=== PATIENT | female | born 1965 | race Caucasian/White ===

== ENCOUNTER 2017-04-29 20:40 | Inpatient (IN) | payer MEDICARE, OTHER ==
[~2017-04-29] VITALS: Ht 160 cm; Wt 117.4 kg
[~2017-04-29 20:40] MED LIST: DIPH50 PO; GLUCTAB PO; LURA120T PO; METF500 PO; MVI PO; NEOS15T TOPICAL; PALI234P IM; PARO20 PO; PARO20TA PO; PERI8.6T PO; PRAV40 PO; QUET200 PO; TAB-TAB PO; TOPA100T8 PO; TOPI100 PO; TUMS PO; [UNRECOGNIZED DRUG - CODE] PO
[2017-04-29 20:51] VITALS: BP 124/83; PULSE 78; RESP 14; TEMP 98.5; O2SAT 98
[2017-04-29 22:13] LABS: AUTOMATED NEUTROPHIL # 5.8 TH/MM3 (1.8-7.7); BASOPHIL # 0.1 TH/MM3 (0-0.2); BASOPHIL % 0.9 % (0.0-2.0); EOSINOPHIL # 0.2 TH/MM3 (0-0.4); EOSINOPHIL % 2.1 % (0.0-4.0); HEMATOCRIT 37.7 % (35.0-46.0); HEMOGLOBIN 12.8 GM/DL (11.6-15.3); LYMPH % 24.5 % (9.0-44.0); LYMPHOCYTE # 2.1 TH/MM3 (1.0-4.8); MEAN CORPUSCULAR HEMOGLOBIN 30.3 PG (27.0-34.0); MEAN CORPUSCULAR HGB CONC 34.1 % (32.0-36.0); MEAN PLATELET VOLUME 7.3 FL (7.0-11.0); MONO % 5.9 % (0.0-8.0); MONOCYTE # 0.5 TH/MM3 (0-0.9); NEUT % 66.6 % (16.0-70.0); PLATELET COUNT 247 TH/MM3 (150-450); RED BLOOD COUNT 4.23 MIL/MM3 (4.00-5.30); RED CELL DISTRIBUTION WIDTH 14.4 % (11.6-17.2); WHITE BLOOD COUNT 8.7 TH/MM3 (4.0-11.0)
[2017-04-29 22:33] LABS: ALBUMIN 3.5 GM/DL (3.4-5.0); ALT (GPT) 47 U/L (10-53); AST (GOT) 31 U/L (15-37); BICARBONATE 29.9 MEQ/L (21.0-32.0); BLOOD UREA NITROGEN 10 MG/DL (7-18); CALCIUM 9.4 MG/DL (8.5-10.1); CHLORIDE 101 MEQ/L (98-107); GLOMERULAR FILTRATION RATE 67 ML/MIN (>89); GLUCOSE,RANDOM 96 MG/DL (74-106); SODIUM (NA) 138 MEQ/L (136-145)
[2017-04-29 22:36] LABS: ALKALINE PHOSPHATASE 82 U/L (45-117); TOTAL BILIRUBIN ADULT 0.4 MG/DL (0.2-1.0); TOTAL PROTEIN 7.7 GM/DL (6.4-8.2)
[2017-04-29 22:44] LABS: ACETAMINOPHEN LESS THAN 2.0 MCG/ML (10.0-30.0)
--- NOTE | 2017-04-30 01:37 | PD ---
HPI Chief Complaint: Psychiatric Symptoms Time Seen by Provider: 01:34 Travel History International Travel<30 days: No Contact w/Intl Traveler<30days: No Traveled to known affect area: No History of Present Illness HPI 51-year-old white female presents to emergency department under Serrano act by the doctor at her facility. Patient lives in a [facility]. She has a history of schizoaffective disorder, hypercholesterolemia, obesity, sleep apnea and diabetes. She has been noncompliant with her medications. She has become increasingly agitated. She is locking herself in her room. There is concern for her well-being. She is brought here under Serrano act. The patient here denies any suicidal or homicidal ideation. She states that she does not think she needs her medications. Denies tobacco, alcohol or drugs. PFSH Past Medical History Narrative Medical Sleep apnea, obesity, hypercholesterolemia, schizoaffective disorder, diabetes Arthritis: No Asthma: No Blood Disorders: No Bipolar Disorder: Yes Anxiety: Yes Depression: Yes Heart Rhythm Problems: No Cancer: No Cardiovascular Problems: Yes High Cholesterol: Yes Chest Pain: No Congestive Heart Failure: No COPD: No Cerebrovascular Accident: No Diabetes: Yes Patient Takes Glucophage: Yes Diminished Hearing: No Endocrine: No Gastrointestinal Disorders: No Genitourinary: No Headaches: No Hepatitis: No Hiatal Hernia: No Hypertension: No Immune Disorder: No Implanted Vascular Access Dvce: No Musculoskeletal: No Neurologic: No Psychiatric: Yes Reproductive: No Respiratory: No Immunizations Current: Yes Migraines: No Myocardial Infarction: No Renal Failure: No Schizophrenia: Yes (SCHIZOAFFECTIVE) Seizures: No Sleep Apnea: No Thyroid Disease: No Triglycerides - High: Yes Tetanus Vaccination: < 5 Years Influenza Vaccination: No ?: Not Menopausal: No : 6 Para: 6 Miscarriage: 0 : 0 Past Surgical History Appendectomy: No Cardiac Surgery: No Cholecystectomy: No Ear Surgery: No Endocrine Surgery: No Eye Surgery: No Genitourinary Surgery: No Gynecologic Surgery: No Neurologic Surgery: No Oral Surgery: No Thoracic Surgery: No Other Surgery: No Social History Alcohol Use: No Tobacco Use: No Substance Use: No Allergies-Medications (Allergen,Severity, Reaction): Coded Allergies: lamotrigine (Unverified Allergy, Mild, Rash, 04/29/17) Reported Meds & Prescriptions Reported Meds & Active Scripts Active Active Prescriptions or Reported Medications Unobtainable Review of Systems Except as stated in HPI: all other systems reviewed are Neg General / Constitutional: No: Fever Eyes: No: Visual changes HENT: No: Headaches Cardiovascular: No: Chest Pain or Discomfort Respiratory: No: Shortness of Breath Gastrointestinal: No: Abdominal Pain Genitourinary: No: Dysuria Musculoskeletal: No: Pain Skin: No Rash Neurologic: No: Weakness Psychiatric: No: Anxiety, Depression, Suicidal Ideations, Disorder of Thought, Mood Disorder, Substance Abuse, Homicidal Ideation Endocrine: No: Polydipsia Hematologic/Lymphatic: No: Easy Bruising Physical Exam Narrative GENERAL: Well-nourished, well-developed patient. SKIN: Warm and dry. HEAD: Normocephalic and atraumatic. EYES: No scleral icterus. No injection or drainage. ENT: No nasal drainage noted. Mucous membranes pink. Airway patent. NECK: Supple, trachea midline. Moves head freely without obvious discomfort. CARDIOVASCULAR: Regular rate and rhythm without murmurs, gallops, or rubs. RESPIRATORY: Breath sounds equal bilaterally. No accessory muscle use. GASTROINTESTINAL: Abdomen soft, non-tender, nondistended. EXTREMITIES: No cyanosis or edema. BACK: Nontender without obvious deformity. No CVA tenderness. NEURO: Patient is alert and oriented. no sensorimotor deficits. Nonfocal. Normal speech. PSYCH: No delusions. No auditory or visual hallucinations. Data Data Last Documented VS Vital Signs Date Time Temp Pulse Resp B/P (MAP) Pulse Ox O2 Delivery O2 Flow Rate FiO2 04/29/17 20:51 98.5 78 14 124/83 (97) 98 Orders Orders Complete Blood Count With Diff (04/29/17 21:59) Comprehensive Metabolic Panel (04/29/17 21:59) Psych Screen (04/29/17 21:59) Drug Screen, Random Urine (04/29/17 21:59) Alcohol (Ethanol) (04/29/17 21:59) Salicylates (Aspirin) (04/29/17 21:59) Tylenol (Acetaminophen) (04/29/17 21:59) Labs Laboratory Tests Test 04/29/17 22:02 White Blood Count 8.7 TH/MM3 Red Blood Count 4.23 MIL/MM3 Hemoglobin 12.8 GM/DL Hematocrit 37.7 % Mean Corpuscular Volume 89.0 FL Mean Corpuscular Hemoglobin 30.3 PG Mean Corpuscular Hemoglobin Concent 34.1 % Red Cell Distribution Width 14.4 % Platelet Count 247 TH/MM3 Mean Platelet Volume 7.3 FL Neutrophils (%) (Auto) 66.6 % Lymphocytes (%) (Auto) 24.5 % Monocytes (%) (Auto) 5.9 % Eosinophils (%) (Auto) 2.1 % Basophils (%) (Auto) 0.9 % Neutrophils # (Auto) 5.8 TH/MM3 Lymphocytes # (Auto) 2.1 TH/MM3 Monocytes # (Auto) 0.5 TH/MM3 Eosinophils # (Auto) 0.2 TH/MM3 Basophils # (Auto) 0.1 TH/MM3 CBC Comment DIFF FINAL Differential Comment Blood Urea Nitrogen 10 MG/DL Creatinine 0.90 MG/DL Random Glucose 96 MG/DL Total Protein 7.7 GM/DL Albumin 3.5 GM/DL Calcium Level 9.4 MG/DL Alkaline Phosphatase 82 U/L Aspartate Amino Transf (AST/SGOT) 31 U/L Alanine Aminotransferase (ALT/SGPT) 47 U/L Total Bilirubin 0.4 MG/DL Sodium Level 138 MEQ/L Potassium Level 3.6 MEQ/L Chloride Level 101 MEQ/L Carbon Dioxide Level 29.9 MEQ/L Anion Gap 7 MEQ/L Estimat Glomerular Filtration Rate 67 ML/MIN Salicylates Level LESS THAN 1.7 MG/DL Acetaminophen Level LESS THAN 2.0 MCG/ML Ethyl Alcohol Level LESS THAN 3 MG/DL MDM Medical Decision Making Medical Screen Exam Complete: Yes Emergency Medical Condition: Yes Medical Record Reviewed: Yes Interpretation(s) Laboratory Tests Test 04/29/17 22:02 White Blood Count 8.7 TH/MM3 Red Blood Count 4.23 MIL/MM3 Hemoglobin 12.8 GM/DL Hematocrit 37.7 % Mean Corpuscular Volume 89.0 FL Mean Corpuscular Hemoglobin 30.3 PG Mean Corpuscular Hemoglobin Concent 34.1 % Red Cell Distribution Width 14.4 % Platelet Count 247 TH/MM3 Mean Platelet Volume 7.3 FL Neutrophils (%) (Auto) 66.6 % Lymphocytes (%) (Auto) 24.5 % Monocytes (%) (Auto) 5.9 % Eosinophils (%) (Auto) 2.1 % Basophils (%) (Auto) 0.9 % Neutrophils # (Auto) 5.8 TH/MM3 Lymphocytes # (Auto) 2.1 TH/MM3 Monocytes # (Auto) 0.5 TH/MM3 Eosinophils # (Auto) 0.2 TH/MM3 Basophils # (Auto) 0.1 TH/MM3 CBC Comment DIFF FINAL Differential Comment Blood Urea Nitrogen 10 MG/DL Creatinine 0.90 MG/DL Random Glucose 96 MG/DL Total Protein 7.7 GM/DL Albumin 3.5 GM/DL Calcium Level 9.4 MG/DL Alkaline Phosphatase 82 U/L Aspartate Amino Transf (AST/SGOT) 31 U/L Alanine Aminotransferase (ALT/SGPT) 47 U/L Total Bilirubin 0.4 MG/DL Sodium Level 138 MEQ/L Potassium Level 3.6 MEQ/L Chloride Level 101 MEQ/L Carbon Dioxide Level 29.9 MEQ/L Anion Gap 7 MEQ/L Estimat Glomerular Filtration Rate 67 ML/MIN Salicylates Level LESS THAN 1.7 MG/DL Acetaminophen Level LESS THAN 2.0 MCG/ML Ethyl Alcohol Level LESS THAN 3 MG/DL Differential Diagnosis MDM: High Differential diagnoses: Schizophrenia, schizoaffective disorder, bipolar, anxiety, depression, adjustment reaction, mood disorder NOS, ODD, depressive disorder NOS, dementia, dementia with agitation, psychosis NOS, substance induced mood disorder, DMDD, Asperger syndrome, infection,electrolyte abnormality, malingering. Narrative Course Mental health screening discussed with the patient. Psychiatric screen ordered. The patient been medically clear. This is medical clearance for psychiatric admission Diagnosis Primary Impression: Medical clearance for psychiatric admission Scripts Unable to Obtain Active Prescriptions or Reported Meds Condition: Harmeet Haji Apr 30, 2017 01:36
[2017-04-30] MEDS ORDERED: LISI30TA4 PO (02:38)
[2017-04-30] MEDS ORDERED: BREX1TAB5 PO (02:38)
[2017-04-30] MEDS ORDERED: PRAV20TA2 PO (02:38)
[2017-04-30] MEDS ORDERED: PARO30TA2 PO (02:38)
[2017-04-30] MEDS ORDERED: SENN8.6T36 PO (02:38)
[2017-04-30] MEDS ORDERED: NAPR-855 PO (02:38)
[2017-04-30] MEDS ORDERED: DIPH25TA2 PO (02:38)
[2017-04-30] MEDS ORDERED: METF500T PO (02:38)
[2017-04-30] MEDS ORDERED: PALI234P IM (02:38)
[2017-04-30] MEDS ORDERED: OS-CTAB PO (02:38)
[2017-04-30] MEDS ORDERED: MULTTAB67 PO (02:38)
[2017-04-30 05:20] VITALS: BP 102/66; PULSE 65; RESP 16; TEMP 98.1; O2SAT 94
[2017-04-30] MEDS ORDERED: LORazepam 1 MG TAB PO PRN (06:00)
[2017-04-30] MEDS ORDERED: PILL SPLITTER OTHER PRN ×2 (06:00→16:00)
[2017-04-30] MEDS ORDERED: MAGNESIUM HYDROXIDE SUSP 30 ML CUP PO PRN (06:00)
[2017-04-30] MEDS ORDERED: LORazepam 2 MG/ML VIAL IM PRN (06:00)
[2017-04-30] MEDS ORDERED: ALUMINUM/MAGNESIUM/SIMETH 30 ML CUP PO PRN (06:00)
[2017-04-30] MEDS ORDERED: ACETAMINOPHEN 325 MG TAB PO PRN (06:00)
[2017-04-30] MEDS ORDERED: diphenhydrAMINE HCL 25 MG CAP PO PRN (06:15)
[2017-04-30] MEDS ORDERED: NAPROXEN 375 MG TAB PO PRN (06:15)
[2017-04-30] MEDS ORDERED: PARoxetine HCL 20 MG TAB PO SCH ×2 (09:00→16:00)
[2017-04-30 09:20] VITALS: BP 131/65
[2017-04-30] MEDS: PRAVASTATIN SOD 20 MG TAB PO SCH (09:29)
[2017-04-30] MEDS: CALCIUM/VITAMIN D 250 MG/125 U TAB PO SCH (09:31)
[2017-04-30] MEDS: SENNOSIDES 8.6 MG TAB PO SCH ×2 (09:31→20:45)
[2017-04-30] MEDS: metFORMIN HCL 500 MG TAB PO SCH (09:31)
[2017-04-30] MEDS: MULTIVITAMIN TAB PO SCH (09:31)
[2017-04-30] MEDS: LISINOPRIL 10 MG TAB PO SCH (09:33)
--- NOTE | 2017-04-30 13:29 | PD.CONS ---
HPI Service [facility] Consult Requested By Reason for Consult Medical management Primary Care Physician Unknown Diagnoses: History of Present Illness Ms. Zavala is a 51-year-old female who was brought to the emergency department under a Serrano act by the physician who cares for her the [facility] where she lives at. Apparently patient was becoming increasingly agitated and locking herself in her room. Patient has a past medical history which is significant for schizoaffective disorder, hypertension, hypercholesterolemia, obesity, and sleep apnea with CPAP use at bedtime. She denies any shortness of breath, cough, fevers, chills, nausea, vomiting, diarrhea, headaches, lightheadedness or chest pains. Denies any dysuria, hematuria, or frequency, stools are normal. She denies any black or bloody stools. She reports that she takes medication for her diabetes but is unsure of the name of the medication, denies use of insulin. She voices no acute concerns at the current moment. Review of Systems Except as stated in HPI: all other systems reviewed are Neg Past Family Social History Allergies: Coded Allergies: lamotrigine (Unverified Allergy, Mild, Rash, 04/29/17) Past Medical History Hypertension Diabetes Hypercholesterolemia Sleep apnea Obesity Past Surgical History Denies any past surgeries. Reported Medications Reported Meds & Active Scripts Active Reported Naproxen 375 Mg Tab 375 Mg PO BID PRN Diphenhydramine (Diphenhydramine HCl) 25 Mg Tab 50 Mg PO HS PRN Invega Sustenna Inj (Paliperidone Palmitate) 234 Mg/1.5 Ml Inj 234 Mg IM Q28D Senna-Tabs (Sennosides) 8.6 Mg Tab 8.6 Mg PO BID Paroxetine (Paroxetine HCl) 30 Mg Tab 30 Mg PO DAILY Multiple Vitamin 1 Tab 1 Tab PO DAILY Rexulti (Brexpiprazole) 3 Mg Tab 3 Mg PO DAILY Lisinopril 30 Mg Tab 30 Mg PO DAILY Pravastatin 20 Mg Tab 20 Mg PO DAILY Os-Moise Extra D3 (Calcium Carbonate-Cholecalciferol) 500-600 Mg-Unit Tab 1 Tab PO DAILY Metformin (Metformin HCl) 500 Mg Tab 500 Mg PO DAILY With a meal Active Ordered Medications Current Medications Medications (Trade) Dose Ordered Sig/Benjie Route Start Time Stop Time Status Last Admin (Ativan) 1 mg Q6H PRN PO 04/30/17 06:00 (Ativan Inj) 1 mg Q6H PRN IM 04/30/17 06:00 (Tylenol) 650 mg Q4H PRN PO 04/30/17 06:00 (Milk Of Magnesia Liq) 30 ml DAILY PRN PO 04/30/17 06:00 (Mag-Al Plus Susp Liq) 30 ml Q6H PRN PO 04/30/17 06:00 (Glucophage) 500 mg DAILY PO 04/30/17 09:00 04/30/17 09:31 (Oscal-D 250-125) 500 mg DAILY PO 04/30/17 09:00 04/30/17 09:31 (Pravachol) 20 mg DAILY PO 04/30/17 09:00 04/30/17 09:29 (Prinivil) 30 mg DAILY PO 04/30/17 09:00 04/30/17 09:33 (Theragran) 1 tab DAILY PO 04/30/17 09:00 04/30/17 09:31 (Paxil) 30 mg DAILY PO 04/30/17 09:00 (Pill Splitter) 1 ea UNSCH PRN OTHER 04/30/17 06:00 (Senokot) 8.6 mg BID PO 04/30/17 09:00 04/30/17 09:31 (Benadryl) 25 mg HS PRN PO 04/30/17 06:15 (Naprosyn) 375 mg BID PRN PO 04/30/17 06:15 (Flu (Quadrivalent) Vaccine Inj) 0.5 ml ONCE ONCE IM 05/01/17 10:00 05/01/17 10:01 (SEROquel) 50 mg BID PO 04/30/17 21:00 (Pill Splitter) 1 ea UNSCH PRN OTHER 04/30/17 16:00 Family History Father: Leukemia Social History Lives at [facility] Reports that she has 6 children Physical Exam Vital Signs Vital Signs Date Time Temp Pulse Resp B/P (MAP) Pulse Ox O2 Delivery O2 Flow Rate FiO2 04/30/17 09:20 131/65 (87) 04/30/17 05:20 98.1 65 16 102/66 (78) 94 04/29/17 20:51 98.5 78 14 124/83 (97) 98 Physical Exam GENERAL: This is a well-nourished, obese female resting in bed comfortably. SKIN: No rashes. Cool and dry. HEAD: Atraumatic. Normocephalic. EYES: Pupils equal round and reactive. No scleral icterus. No injection or drainage. ENT: Nose without bleeding, purulent drainage. Throat without erythema. Uvula midline. Airway patent. NECK: Trachea midline. No JVD CARDIOVASCULAR: Regular rate and rhythm without murmurs, gallops, or rubs. RESPIRATORY: Clear to auscultation. Breath sounds equal bilaterally. No wheezes , rales, or rhonchi. GASTROINTESTINAL: Abdomen soft, obese, non-tender. No guarding. MUSCULOSKELETAL: Extremities without clubbing, cyanosis, or edema. No joint tenderness, effusion, or edema noted. NEUROLOGICAL: Awake and alert. Cranial nerves II through XII intact. Motor and sensory grossly within normal limits. Five out of 5 muscle strength in all muscle groups. Normal speech. Laboratory Laboratory Tests Test 04/29/17 22:02 White Blood Count 8.7 Red Blood Count 4.23 Hemoglobin 12.8 Hematocrit 37.7 Mean Corpuscular Volume 89.0 Mean Corpuscular Hemoglobin 30.3 Mean Corpuscular Hemoglobin Concent 34.1 Red Cell Distribution Width 14.4 Platelet Count 247 Mean Platelet Volume 7.3 Neutrophils (%) (Auto) 66.6 Lymphocytes (%) (Auto) 24.5 Monocytes (%) (Auto) 5.9 Eosinophils (%) (Auto) 2.1 Basophils (%) (Auto) 0.9 Neutrophils # (Auto) 5.8 Lymphocytes # (Auto) 2.1 Monocytes # (Auto) 0.5 Eosinophils # (Auto) 0.2 Basophils # (Auto) 0.1 CBC Comment DIFF FINAL Differential Comment Blood Urea Nitrogen 10 Creatinine 0.90 Random Glucose 96 Total Protein 7.7 Albumin 3.5 Calcium Level 9.4 Alkaline Phosphatase 82 Aspartate Amino Transf (AST/SGOT) 31 Alanine Aminotransferase (ALT/SGPT) 47 Total Bilirubin 0.4 Sodium Level 138 Potassium Level 3.6 Chloride Level 101 Carbon Dioxide Level 29.9 Anion Gap 7 Estimat Glomerular Filtration Rate 67 Salicylates Level LESS THAN 1.7 Acetaminophen Level LESS THAN 2.0 Ethyl Alcohol Level LESS THAN 3 Result Diagram: 04/29/17220104/29/172201 Assessment and Plan Assessment and Plan 11-year-old female with past medical history significant for HTN, diabetes, hypercholesterolemia, sleep apnea, schizoaffective disorder, and obesity who presents to the emergency department under Serrano act after patient was having increasing episodes of agitation at [facility]. [facility] consulted for medical management. Schizoaffective disorder -Management per psychiatry team Hypertension, controlled -Continue home dose lisinopril 30 mg daily. -BP stable, continue monitoring. Diabetes -Continue home dose metformin and 1800 ADA diet. -Blood sugar on BMP within normal range -Hemoglobin A1c ordered by primary team Hypercholesterolemia -Continue home dose pravastatin DVT prophylaxis-ambulating Thank you for this consultation will continue to follow along. Willian Lara Apr 30, 2017 13:29
[2017-04-30] MEDS ORDERED: NON-FORMULARY DRUG (Paroxetine 30 MG) PO SCH (16:00)
[2017-04-30] MEDS: PARoxetine HCL 20 MG TAB PO SCH (16:30)
--- NOTE | 2017-04-30 16:52 | HHI.HP ---
Provisional Diagnosis Admission Date Apr 30, 2017 at 04:57 [place] I. Schizoaffective disorder Certification of Person's Competence To Provide Express and Informed Consent I have personally examined Sierra Zavala , a person being served at [facility] on, Apr 30, 2017 16:49. Express and informed consent means consent voluntarily given in writing, by a competent person, after sufficient explanation and disclosure of the subject matter involved to enable the person to make a knowing and willful decision without any element of force, fraud, deceit, duress, or other form of constraint or coercion. This person is 18 years of age or older, is not now known to be incompetent to consent to treatment with a guardian advocate, and does not have a health care surrogate or proxy currently making medical treatment decisions. I have found this person to be one of the following: [] Competent to provide express and informed consent, as defined above, for voluntary admission to this facility and is competent to provide express and informed consent for treatment. He/she has the consistent capacity to make well reasoned, willful, and knowing decisions concerning his or her medical or mental health treatment. The person fully and consistently understands the purpose of the admission for examination/placement and is fully capable of personally exercising all rights assured under [place]xxx] Incompetent to provide express and informed consent to voluntary admission , and this is incompetent to provide express and informed consent to treatment. The person must be transferred to involuntary status and a petition for a guardian advocate filed with the Circuit Court. [] Refusing to provide express and informed consent to voluntary admission but is competent to provide express and informed consent for treatment. The person must be discharged or transferred to involuntary status. Form shall be completed within 24 hours of a person's arrival at the receiving facility and filed in the clinical record of each person: 1. Admitted on a voluntary basis 2. Permitted to provide express and informed consent to his/her own treatment 3. Allowed to transfer from involuntary to voluntary status 4. Prior to permitting a person to consent to his or her own treatment after having been previously found incompetent to consent to treatment. History of Present Illness Capacity: Has Capacity (For medications only) HPI Patient is a 51-year-old woman single with 6 children domiciled alone in an assisted living facility, [facility], unemployed on SSI, with past psychiatric history of schizoaffective disorder multiple psychiatric admissions last time in November 2014 at [place], multiple suicide attempts and self- injurious behavior with past medical history significant for hypertension diabetes Little brought in the Serrano act by physician at her facility due to noncompliance with treatment, increasing agitation, and isolating self in room patient was admitted to the inpatient psychiatry for further evaluation and management. Patient was found lying in hospital bed, cooperative stating that she is in the hospital because she was not taking her medications for the past 7 days. Patient was noted to be poor historian S most answers to questions have been "I do not remember or I do not know". Patient states that she was brought in by her FACT team to 2 commendatory hallucinations for the past 3 days to hurt herself. Patient reports feeling a little depressed, endorsing some visual hallucinations but did not elaborate. Patient also denying suicidal or homicidal ideations or delusions at this time. Patient admitted to locked herself in her room for the past couple of days and not eating well but reports no difficulty with sleep, energy, concentration or appetite. Patient reports she is feeling "okay" denies any perceptual disturbances at time of interview. Collateral contact: Hat Band Attacher Rajni from [facility], FACT team -[phone]. Collateral information was obtained from clinical education assistant who reported the patient tried to admission stopped taking her medications as well as cheeking her medications. She also mentions that patient was thought probably diuretics, diet pills and laxatives that were hidden in her room as well as razors. Family psychiatric history: Patient reports an aunt with diagnosis of depression , no suicides in the family Past psychiatric history: previous psychiatric diagnoses of schizoaffective disorder, multiple previous psychiatric admissions, last time at [place] in November 2014, multiple previous suicide attempts last and being "years ago" via cutting and overdose, history of self and behavior via burning self with hot water last time being 2 years ago. Patient will be followed by the FACT team for the past 13 years who she has seen her visited once or twice a week. Substance use history: Denies Past medical history: Diabetes and hypertension Allergies NKDA Social history: Born in [place], has 7 siblings, single, has 6 children, domiciled in guarded manner [facility], education is high school. Patient denies any legal history, service, or access to firearms. Patient unemployed on SSI. Review of Systems Except as stated in HPI: all other systems reviewed are Neg Past Psych History Psychological trauma history Denies Violence risk - others (6 mos) Low Violence risk - self (6 mos) Elevated due to recent command auditory hallucinations to kill herself, history of suicide attempts. Substance Abuse History Drugs/Alcohol past 12 months Denies Past Family Social History Coded Allergies: lamotrigine (Unverified Allergy, Mild, Rash, 04/29/17) Reported Medications Naproxen (Naproxen) 375 Mg Tab, 375 MG PO BID Y for PAIN SCALE 1 TO 10, #60 TAB 0 Refills 04/30/17 Diphenhydramine (Diphenhydramine) 25 Mg Tab, 50 MG PO HS Y for SLEEP, TAB 0 Refills 04/30/17 Paliperidone Palmitate Inj (Invega Sustenna Inj) 234 Mg/1.5 Ml Inj, 234 MG IM Q28D for Schizophrenia, #1 VIAL 0 Refills 04/30/17 Sennosides (Senna-Tabs) 8.6 Mg Tab, 8.6 MG PO BID for Constipation, #30 TAB 0 Refills 04/30/17 Paroxetine (Paroxetine) 30 Mg Tab, 30 MG PO DAILY, #30 TAB 0 Refills 04/30/17 Multiple Vitamin (Multiple Vitamin) 1 Tab, 1 TAB PO DAILY for Nutritional Supplement, TAB 0 Refills 04/30/17 Brexpiprazole (Rexulti) 3 Mg Tab, 3 MG PO DAILY, TAB 04/30/17 Lisinopril (Lisinopril) 30 Mg Tab, 30 MG PO DAILY for Blood Pressure Management , #30 TAB 0 Refills 04/30/17 Pravastatin (Pravastatin) 20 Mg Tab, 20 MG PO DAILY for Cholesterol Management, #30 TAB 0 Refills 04/30/17 Calcium Carbonate-Cholecalciferol (Os-Moise Extra D3) 500-600 Mg-Unit Tab, 1 TAB PO DAILY for Calcium Supplement, TAB 0 Refills 04/30/17 Metformin (Metformin) 500 Mg Tab, 500 MG PO DAILY for Blood Sugar Management, # 30 TAB 0 Refills With a meal 04/30/17 Current Medications Medications (Trade) Dose Ordered Sig/Benjie Route Start Time Stop Time Status Last Admin (Ativan) 1 mg Q6H PRN PO 2/21/18 06:00 (Ativan Inj) 1 mg Q6H PRN IM 04/30/17 06:00 (Tylenol) 650 mg Q4H PRN PO 04/30/17 06:00 (Milk Of Magnesia Liq) 30 ml DAILY PRN PO 04/30/17 06:00 (Mag-Al Plus Susp Liq) 30 ml Q6H PRN PO 04/30/17 06:00 (Glucophage) 500 mg DAILY PO 04/30/17 09:00 04/30/17 09:31 (Oscal-D 250-125) 500 mg DAILY PO 04/30/17 09:00 04/30/17 09:31 (Pravachol) 20 mg DAILY PO 04/30/17 09:00 04/30/17 09:29 (Prinivil) 30 mg DAILY PO 04/30/17 09:00 04/30/17 09:33 (Theragran) 1 tab DAILY PO 04/30/17 09:00 04/30/17 09:31 (Senokot) 8.6 mg BID PO 04/30/17 09:00 04/30/17 09:31 (Benadryl) 25 mg HS PRN PO 04/30/17 06:15 (Naprosyn) 375 mg BID PRN PO 04/30/17 06:15 (Flu (Quadrivalent) Vaccine Inj) 0.5 ml ONCE ONCE IM 05/01/17 10:00 05/01/17 10:01 (SEROquel) 50 mg BID PO 04/30/17 21:00 (Pill Splitter) 1 ea UNSCH PRN OTHER 04/30/17 16:00 (Paxil) 30 mg DAILY PO 04/30/17 16:30 Family Psych History Aunt with depression, no suicide in the family Social History Born in [place], has 7 siblings, single, has 6 children, domiciled in guarded manner [facility], education is high school. Patient denies any legal history , service, or access to firearms. Patient unemployed on SSI. Patient's Strengths (min. 2) Verbal and communicative Physical Exam Vital Signs Vital Signs Date Time Temp Pulse Resp B/P (MAP) Pulse Ox O2 Delivery O2 Flow Rate FiO2 04/30/17 09:20 131/65 (87) 04/30/17 05:20 98.1 65 16 94 Lab Results Test 04/29/17 22:02 White Blood Count 8.7 TH/MM3 Red Blood Count 4.23 MIL/MM3 Hemoglobin 12.8 GM/DL Hematocrit 37.7 % Mean Corpuscular Volume 89.0 FL Mean Corpuscular Hemoglobin 30.3 PG Mean Corpuscular Hemoglobin Concent 34.1 % Red Cell Distribution Width 14.4 % Platelet Count 247 TH/MM3 Mean Platelet Volume 7.3 FL Neutrophils (%) (Auto) 66.6 % Lymphocytes (%) (Auto) 24.5 % Monocytes (%) (Auto) 5.9 % Eosinophils (%) (Auto) 2.1 % Basophils (%) (Auto) 0.9 % Neutrophils # (Auto) 5.8 TH/MM3 Lymphocytes # (Auto) 2.1 TH/MM3 Monocytes # (Auto) 0.5 TH/MM3 Eosinophils # (Auto) 0.2 TH/MM3 Basophils # (Auto) 0.1 TH/MM3 CBC Comment DIFF FINAL Differential Comment Blood Urea Nitrogen 10 MG/DL Creatinine 0.90 MG/DL Random Glucose 96 MG/DL Total Protein 7.7 GM/DL Albumin 3.5 GM/DL Calcium Level 9.4 MG/DL Alkaline Phosphatase 82 U/L Aspartate Amino Transf (AST/SGOT) 31 U/L Alanine Aminotransferase (ALT/SGPT) 47 U/L Total Bilirubin 0.4 MG/DL Sodium Level 138 MEQ/L Potassium Level 3.6 MEQ/L Chloride Level 101 MEQ/L Carbon Dioxide Level 29.9 MEQ/L Anion Gap 7 MEQ/L Estimat Glomerular Filtration Rate 67 ML/MIN Salicylates Level LESS THAN 1.7 MG/DL Acetaminophen Level LESS THAN 2.0 MCG/ML Ethyl Alcohol Level LESS THAN 3 MG/DL Mental Status Examination Appearance: Appropriate Consciousness: Alert Orientation: Person, Place, Date/Time Speech: Unremarkable Language: Adequate Fund of Knowledge: Inadequate Attention and Concentration: Adequate Memory: Unremarkable Mood: Sad Affect: Blunt Thought Process & Associations: Linear, Other ([place]) Thought Content: Appropriate, Other (Noted to be somewhat internally preoccupied) Hallucination Type: Auditory (Command type telling her to kill herself), Visual Delusion Type: Paranoid Suicidal Ideation: No Suicidal Plan: No Suicidal Intention: No Homicidal Ideation: No Homicidal Plan: No Homicidal Intention: No Insight: Poor Judgment: Poor Assessment & Plan Problem List: (1) Schizoaffective disorder ICD Codes: F25.9 - Schizoaffective disorder Status: Acute Assessment & Plan Patient is a 51-year-old woman who carries a diagnosis of schizoaffective disorder with multiple psychiatric admissions, multiple suicide attempts and history of self-injurious behavior was put under Serrano act recently after patient was found isolating herself, not taking care of self, found with diuretics and laxatives and diet pills hidden in her room as well as stockpile of razors in the context of noncompliance of medications. Patient this time has active psychotic symptoms and requires inpatient psychiatric stabilization. We will restart patient on paroxetine 30 mg p.o. daily, start quetiapine 50 mg p.o. twice daily was upper titration as needed. Patient to receive Invega Sustenna 234 mg IM 1 today and do every 28 days. Continue to monitor with behavior. Hospitalist consult for management of chronic medical issues pending. Petition for involuntary hospitalization started. Second opinion requested. Discharge planning in progress Discharge Planning Back to her [facility] when psychiatrically stable Jose Billingsley MD Apr 30, 2017 16:52
[2017-04-30] MEDS ORDERED: PALIPERIDONE PALMITATE 234 MG/1.5 ML SYRINGE IM SCH (17:00)
[2017-04-30 18:00] VITALS: BP 136/57; PULSE 69; RESP 16; TEMP 98; O2SAT 95
[2017-04-30] MEDS: QUEtiapine FUMARATE 100 MG TAB PO SCH (20:45)
[2017-05-01 06:05] VITALS: BP 98/58; PULSE 69; RESP 19; TEMP 97.2; O2SAT 96
[2017-05-01 08:24] LABS: BICARBONATE 30.7 MEQ/L (21.0-32.0); BLOOD UREA NITROGEN 16 MG/DL (7-18); CALCIUM 9.3 MG/DL (8.5-10.1); CHLORIDE 100 MEQ/L (98-107); CHOLESTEROL 186 MG/DL (120-200); CREATININE 1.35 MG/DL (0.50-1.00); GLOMERULAR FILTRATION RATE 42 ML/MIN (>89); GLUCOSE,RANDOM 96 MG/DL (74-106); SODIUM (NA) 139 MEQ/L (136-145); TRIGLYCERIDES 175 MG/DL (42-150)
[2017-05-01] MEDS: metFORMIN HCL 500 MG TAB PO SCH (08:26)
[2017-05-01] MEDS: SENNOSIDES 8.6 MG TAB PO SCH ×2 (08:26→20:52)
[2017-05-01] MEDS: LISINOPRIL 10 MG TAB PO SCH (08:26)
[2017-05-01] MEDS: PARoxetine HCL 20 MG TAB PO SCH (08:26)
[2017-05-01] MEDS: MULTIVITAMIN TAB PO SCH (08:26)
[2017-05-01] MEDS: PRAVASTATIN SOD 20 MG TAB PO SCH (08:26)
[2017-05-01 08:27] LABS: CHOLESTEROL/ HDL RATIO 4.81 RATIO; HDL CHOLESTEROL 38.6 MG/DL (40.0-60.0); LDL CHOLESTEROL 112 MG/DL (0-99)
[2017-05-01] MEDS: QUEtiapine FUMARATE 100 MG TAB PO SCH ×2 (08:27→20:52)
[2017-05-01] MEDS: CALCIUM/VITAMIN D 250 MG/125 U TAB PO SCH (08:27)
[2017-05-01] MEDS ORDERED: INFLUENZA VIRUS VACCINE (QUADRIVALENT) 0.5 ML SYR IM ONE (10:00)
--- NOTE | 2017-05-01 11:41 | PD.PSY.CON ---
Provisional Diagnosis Admission Date Apr 30, 2017 at 04:57 [place] I. Schizoaffective disorder History of Present Illness Service Psychiatry Consult Requested By Dr. Billingsley Reason for Consult Second opinion Primary Care Physician Unknown HPI Patient is a 51-year-old woman single with 6 children domiciled alone in an assisted living facility, [facility], unemployed on [facility], with past psychiatric history of schizoaffective disorder multiple psychiatric admissions last time in November 2014 at [place], multiple suicide attempts and self- injurious behavior with past medical history significant for hypertension diabetes Little brought in the Serrano act by physician at her facility due to noncompliance with treatment, increasing agitation, and isolating self in room patient was admitted to the inpatient psychiatry for further evaluation and management. Patient was found lying in hospital bed, cooperative stating that she is in the hospital because she was not taking her medications for the past 7 days. Patient was noted to be poor historian S most answers to questions have been "I do not remember or I do not know". Patient states that she was brought in by her FACT team to 2 commendatory hallucinations for the past 3 days to hurt herself. Patient reports feeling a little depressed, endorsing some visual hallucinations but did not elaborate. Patient also denying suicidal or homicidal ideations or delusions at this time. Patient admitted to locked herself in her room for the past couple of days and not eating well but reports no difficulty with sleep, energy, concentration or appetite. Patient reports she is feeling "okay" denies any perceptual disturbances at time of interview. Collateral contact: Service Team Leader Rajni from [facility], FACT team -[phone]. Collateral information was obtained from corporate quality engineer who reported the patient tried to admission stopped taking her medications as well as cheeking her medications. She also mentions that patient was thought probably diuretics, diet pills and laxatives that were hidden in her room as well as razors. Family psychiatric history: Patient reports an aunt with diagnosis of depression , no suicides in the family The patient is a 51-year-old woman, domiciled in a residential facility, [facility], single, mother of 6 kids, unemployed, supported by [facility] , with psychiatric history of schizoaffective disorder, multiple psychiatric hospitalizations, previous suicidal attempts, establish outpatient care with fact team, medical history of diabetes, obesity and hypertension, brought under serrano act by physician at her facility due to noncompliance with treatment, increasing agitation, and isolating self in room patient was admitted to the inpatient psychiatry for further evaluation and management. Consulted to live for second opinion. On psychiatric evaluation the patient is found in bed, she is awake, calm, cooperative, pleasant, she reports that he doesn't really know the reason she was hospitalized. She has been taking her medications, she does not remember the name of the medication that she is taking, she reports good mood, denies depression, denies anxiety, is logical, coherent, but has a prominent concrete thought process, denies suicidal and homicidal ideation, denies visual hallucinations, but reports commanding-type auditory hallucinations of voices telling her to currently to kill herself. Past Family Social History Coded Allergies: lamotrigine (Unverified Allergy, Mild, Rash, 04/29/17) Reported Medications Naproxen (Naproxen) 375 Mg Tab, 375 MG PO BID Y for PAIN SCALE 1 TO 10, #60 TAB 0 Refills 04/30/17 Diphenhydramine (Diphenhydramine) 25 Mg Tab, 50 MG PO HS Y for SLEEP, TAB 0 Refills 04/30/17 Paliperidone Palmitate Inj (Invega Sustenna Inj) 234 Mg/1.5 Ml Inj, 234 MG IM Q28D for Schizophrenia, #1 VIAL 0 Refills 04/30/17 Sennosides (Senna-Tabs) 8.6 Mg Tab, 8.6 MG PO BID for Constipation, #30 TAB 0 Refills 04/30/17 Paroxetine (Paroxetine) 30 Mg Tab, 30 MG PO DAILY, #30 TAB 0 Refills 04/30/17 Multiple Vitamin (Multiple Vitamin) 1 Tab, 1 TAB PO DAILY for Nutritional Supplement, TAB 0 Refills 04/30/17 Brexpiprazole (Rexulti) 3 Mg Tab, 3 MG PO DAILY, TAB 04/30/17 Lisinopril (Lisinopril) 30 Mg Tab, 30 MG PO DAILY for Blood Pressure Management , #30 TAB 0 Refills 04/30/17 Pravastatin (Pravastatin) 20 Mg Tab, 20 MG PO DAILY for Cholesterol Management, #30 TAB 0 Refills 04/30/17 Calcium Carbonate-Cholecalciferol (Os-Moise Extra D3) 500-600 Mg-Unit Tab, 1 TAB PO DAILY for Calcium Supplement, TAB 0 Refills 04/30/17 Metformin (Metformin) 500 Mg Tab, 500 MG PO DAILY for Blood Sugar Management, # 30 TAB 0 Refills With a meal 04/30/17 Current Medications Medications (Trade) Dose Ordered Sig/Benjie Route Start Time Stop Time Status Last Admin (Ativan) 1 mg Q6H PRN PO 04/30/17 06:00 (Ativan Inj) 1 mg Q6H PRN IM 04/30/17 06:00 (Tylenol) 650 mg Q4H PRN PO 04/30/17 06:00 (Milk Of Magnesia Liq) 30 ml DAILY PRN PO 04/30/17 06:00 (Mag-Al Plus Susp Liq) 30 ml Q6H PRN PO 04/30/17 06:00 (Glucophage) 500 mg DAILY PO 04/30/17 09:00 Future Hold 05/01/17 08:26 (Oscal-D 250-125) 500 mg DAILY PO 04/30/17 09:00 05/01/17 08:27 (Pravachol) 20 mg DAILY PO 04/30/17 09:00 05/01/17 08:26 (Prinivil) 30 mg DAILY PO 04/30/17 09:00 Future Hold 05/01/17 08:26 (Theragran) 1 tab DAILY PO 04/30/17 09:00 05/01/17 08:26 (Senokot) 8.6 mg BID PO 04/30/17 09:00 05/01/17 08:26 (Benadryl) 25 mg HS PRN PO 04/30/17 06:15 (Naprosyn) 375 mg BID PRN PO 04/30/17 06:15 (SEROquel) 50 mg BID PO 04/30/17 21:00 05/01/17 08:27 (Pill Splitter) 1 ea UNSCH PRN OTHER 04/30/17 16:00 (Paxil) 30 mg DAILY PO 04/30/17 16:30 05/01/17 08:26 (Invega Sustenna Inj) 234 mg Q28D IM 04/30/17 17:00 04/30/17 17:28 Social History Born in [place], has 7 siblings, single, has 6 children, domiciled in guarded manner [facility], education is high school. Patient denies any legal history , service, or access to firearms. Patient unemployed on SSI. Patient's Strengths (min. 2) Verbal and communicative Physical Exam Vital Signs Vital Signs Date Time Temp Pulse Resp B/P (MAP) Pulse Ox O2 Delivery O2 Flow Rate FiO2 05/01/17 06:05 97.2 69 19 98/58 (71) 96 Lab Results Test 05/01/17 07:32 Blood Urea Nitrogen 16 MG/DL Creatinine 1.35 MG/DL Random Glucose 96 MG/DL Calcium Level 9.3 MG/DL Sodium Level 139 MEQ/L Potassium Level 4.0 MEQ/L Chloride Level 100 MEQ/L Carbon Dioxide Level 30.7 MEQ/L Anion Gap 8 MEQ/L Estimat Glomerular Filtration Rate 42 ML/MIN Triglycerides Level 175 MG/DL Cholesterol Level 186 MG/DL LDL Cholesterol 112 MG/DL HDL Cholesterol 38.6 MG/DL Cholesterol/HDL Ratio 4.81 RATIO Mental Status Examination Appearance: Appropriate Consciousness: Alert Orientation: Person, Place, Date/Time Speech: Unremarkable Language: Adequate Fund of Knowledge: Inadequate Attention and Concentration: Adequate Memory: Unremarkable Mood: Sad Affect: Blunt Thought Process & Associations: Linear, Other ([place]) Thought Content: Appropriate, Other (Noted to be somewhat internally preoccupied) Hallucination Type: Auditory (Command type telling her to kill herself), Visual Delusion Type: Paranoid Suicidal Ideation: No Suicidal Plan: No Suicidal Intention: No Homicidal Ideation: No Homicidal Plan: No Homicidal Intention: No Insight: Poor Judgment: Poor Assessment & Plan Problem List: (1) Schizoaffective disorder ICD Codes: F25.9 - Schizoaffective disorder Status: Acute Assessment & Plan: I have seen and examined this patient for second opinion, reviewed the documentation, discussed this case personally with Dr. Billingsley, I agree and concur with his assessment and plan. Consult appreciated. Assessment & Plan Estimated LOS: Raúl Banks MD May 01, 2017 11:41
--- NOTE | 2017-05-01 12:04 | HHI.PR ---
Subjective Remarks Follow-up HTN and DM. Patient seen and examined resting comfortably in bed. She denies any fevers, chills, nausea, vomiting, diarrhea, headache, SOB or cough. Appears more sleepy today and nurse repots that patient was not interested in breakfast or dinner last night. She did shower, but has been seclusive in her room, nursing also noted she was slapping her face last night. Discussed with patient that sometimes CPAP is not uses with LUZ it can cause sleepiness during the day. Offered CPAP, but she declined. Discussed renal function with her and the importance of hydration and holding Metformin and Lisinopril. Repots that she was not taking any of her medications for one week before coming here. She has no acute concerns today. Objective Vitals Vital Signs Date Time Temp Pulse Resp B/P (MAP) Pulse Ox O2 Delivery O2 Flow Rate FiO2 05/01/17 06:05 97.2 69 19 98/58 (71) 96 04/30/17 18:00 98.0 69 16 136/57 (83) 95 Result Diagram: 04/29/17 2202 05/01/17 0732 Objective Remarks GENERAL: This is a well-nourished, obese female resting in bed comfortably, appears sleepy. SKIN: No rashes. Cool and dry. HEAD: Atraumatic. Normocephalic. EYES: Pupils equal round and reactive. No scleral icterus. No injection or drainage. ENT: Airway patent. NECK: Trachea midline. CARDIOVASCULAR: Regular rate and rhythm without murmurs, gallops, or rubs. RESPIRATORY: Clear to auscultation. Breath sounds equal bilaterally. No wheezes , rales, or rhonchi. GASTROINTESTINAL: Abdomen soft, obese, non-tender. No guarding. MUSCULOSKELETAL: Extremities without clubbing, cyanosis, or edema. NEUROLOGICAL: Awake and alert. Motor and sensory grossly within normal limits. Moves all extremities. Normal speech. A/P Assessment and Plan 51-year-old female with past medical history significant for HTN, diabetes, hypercholesterolemia, sleep apnea, schizoaffective disorder, and obesity who presents to the emergency department under Serrano act after patient was having increasing episodes of agitation at [facility]. [facility] consulted for medical management. Schizoaffective disorder -Management per psychiatry team Hypertension, controlled - Lisinopril now on hold due to [place] - Will monitor BP and if needed can start Amlodipine Diabetes -Continue 1800 ADA diet, will hold metformin due to [place] -Blood sugar on BMP within normal range -Hemoglobin A1c pending Hypercholesterolemia -Continue home dose pravastatin [place]ANK[place]N - Increase in Creatinine from 0.9-->1.35, GRF 67-->42 - Will hold Metformin and Lisinopril - Encourage oral hydration - Recheck BMP on 05/03 DVT prophylaxis-ambulating Discussed with nurse and Willian Nina May 01, 2017 12:04
--- NOTE | 2017-05-01 14:14 | HHI.PYPN ---
Subjective Remarks Patient seen for follow, chart reviewed. Discussion with staff reported the patient had not been having adequate nutritional intake but did shower had been consistent with use of CPAP as patient diagnosed with sleep apnea. Patient noted to be internally preoccupied as well as patient having had episode where she was hitting herself in the face. Patient was found lying hospital bed, cooperative. Patient states that she had not eaten at all today psychosis although realizes she is diabetic. Patient also admitted to hitting himself in the face stated that he was trying to help herself Seese from the auditory hallucinations she was experiencing. She states the last time she experienced was less evening denies any perceptual disturbances at time of interview. Patient continues to have depressed mood along with intermittent suicide ideations. Patient also attempted to bargain stating that she drank water she can skip eating was encouraged that she required both. Review of Systems Except as stated in HPI: all other systems reviewed are Neg Mental Status Examination Appearance: Appropriate Consciousness: Alert Orientation: Person, Place, Date/Time Speech: Unremarkable Language: Adequate Fund of Knowledge: Inadequate Attention and Concentration: Adequate Memory: Unremarkable Mood: Sad Affect: Blunt Thought Process & Associations: Linear, Other ([place]) Thought Content: Appropriate, Other (Noted to be somewhat internally preoccupied) Hallucination Type: Auditory (Command type telling her to kill herself), Visual (Denies today) Delusion Type: Paranoid Suicidal Ideation: No Suicidal Plan: No Suicidal Intention: No Homicidal Ideation: No Homicidal Plan: No Homicidal Intention: No Insight: Poor Judgment: Poor Results Labs labs reviewed Test 05/01/17 07:32 Blood Urea Nitrogen 16 MG/DL Creatinine 1.35 MG/DL Random Glucose 96 MG/DL Calcium Level 9.3 MG/DL Sodium Level 139 MEQ/L Potassium Level 4.0 MEQ/L Chloride Level 100 MEQ/L Carbon Dioxide Level 30.7 MEQ/L Anion Gap 8 MEQ/L Estimat Glomerular Filtration Rate 42 ML/MIN Triglycerides Level 175 MG/DL Cholesterol Level 186 MG/DL LDL Cholesterol 112 MG/DL HDL Cholesterol 38.6 MG/DL Cholesterol/HDL Ratio 4.81 RATIO Vitals/IOs Vital Signs Date Time Temp Pulse Resp B/P (MAP) Pulse Ox O2 Delivery O2 Flow Rate FiO2 05/01/17 06:05 97.2 69 19 98/58 (71) 96 Assessment & Plan Problem List: (1) Schizoaffective disorder ICD Codes: F25.9 - Schizoaffective disorder Status: Acute Assessment & Plan Patient at this time continues to be internally preoccupied experience he perceptional services along with having self-injurious behavior, consistently adherent to treatment. We will increase quetiapine to 100 mg p.o. twice daily for psychosis, continue rest of medications. Continue to encourage patient to participate in adequate nutritional intake as well as maintenance of personal hygiene groups and activities on the unit. Continue to monitor motor behavior. Discharge planning in progress. Justification for Cont. Inpt. At risk of further decompensation at lower level of care Discharge Planning Return back to [facility] when psychiatrically stable. Jose Billingsley MD May 01, 2017 14:14
[2017-05-01 16:38] LABS: HEMOGLOBIN A1C 6.3 % (4.3-6.0)
[2017-05-01 18:28] VITALS: BP 108/65; PULSE 68; RESP 16; TEMP 98; O2SAT 97
[2017-05-02 06:03] VITALS: BP 119/57; PULSE 67; RESP 17; TEMP 98.1; O2SAT 96
[2017-05-02] MEDS: PARoxetine HCL 20 MG TAB PO SCH (09:00)
[2017-05-02] MEDS: QUEtiapine FUMARATE 100 MG TAB PO SCH ×2 (09:22→20:57)
[2017-05-02] MEDS: SENNOSIDES 8.6 MG TAB PO SCH ×2 (09:22→20:58)
[2017-05-02] MEDS: CALCIUM/VITAMIN D 250 MG/125 U TAB PO SCH (09:22)
[2017-05-02] MEDS: MULTIVITAMIN TAB PO SCH (09:23)
[2017-05-02] MEDS: PRAVASTATIN SOD 20 MG TAB PO SCH (09:23)
--- NOTE | 2017-05-02 13:57 | HHI.PR ---
Subjective Remarks Follow-up HTN and DM. Patient seen and examined resting comfortably in bed, in no acute distress. She is awake and alert much more than yesterday. She repots sleeping well, denies any fever, chills, nausea, vomiting, or diarrhea. She does repots a headache today which is similar to headaches she has had in the past, no visual changes, dizziness, or nausea. Spoke with nurse who does not voice acute concerns. Objective Vitals Vital Signs Date Time Temp Pulse Resp B/P (MAP) Pulse Ox O2 Delivery O2 Flow Rate FiO2 05/02/17 06:03 98.1 67 17 119/57 (77) 96 05/01/17 18:28 98.0 68 16 108/65 (79) 97 Result Diagram: 04/29/17 2202 05/01/17 0732 Objective Remarks GENERAL: This is a well-nourished, obese female resting in bed comfortably. SKIN: No rashes. Cool and dry. HEAD: Atraumatic. Normocephalic. EYES: Pupils equal round and reactive. No scleral icterus. No injection or drainage. ENT: Airway patent. NECK: Trachea midline. CARDIOVASCULAR: Regular rate and rhythm without murmurs, gallops, or rubs. RESPIRATORY: Clear to auscultation. Breath sounds equal bilaterally. No wheezes , rales, or rhonchi. GASTROINTESTINAL: Abdomen soft, obese, non-tender. No guarding. MUSCULOSKELETAL: Extremities without clubbing, cyanosis, or edema. NEUROLOGICAL: Awake and alert. Motor and sensory grossly within normal limits. Moves all extremities. Normal speech. A/P Assessment and Plan 51-year-old female with past medical history significant for HTN, diabetes, hypercholesterolemia, sleep apnea, schizoaffective disorder, and obesity who presents to the emergency department under Serrano act after patient was having increasing episodes of agitation at [facility] consulted for medical management. Schizoaffective disorder -Management per psychiatry team Hypertension, controlled - Lisinopril now on hold due to FRANKLYN - BP has been stable so far. Diabetes -Continue 1800 ADA diet, will hold metformin due to FRANKLYN -Blood sugar on BMP within normal range -Hemoglobin A1c 6.3-->pre-DM Hypercholesterolemia -Continue home dose pravastatin FRANKLYN - Increase in Creatinine from 0.9-->1.35, GRF 67-->42 - Will hold Metformin and Lisinopril - Encourage oral hydration - Recheck BMP on 05/03 Headache - Tylenol as needed DVT prophylaxis-ambulating Discussed with nurse. Willian Lara May 02, 2017 13:57
--- NOTE | 2017-05-02 19:00 | HHI.PYPN ---
Subjective Remarks Patient is seen for follow-up, chart reviewed. Discussion nursing staff reported the patient did eat breakfast this morning, denies any perceptual disturbances, showered and slept well last evening. Patient was found participating in the activity noted to be calm and cooperative. Patient states that she is eating better, slept well last night, reports not having any auditory hallucinations, last time being yesterday. Patient reports tolerating medications well, she also reports maintaining hygiene by showering today. Patient denies any suicidal ideations last time being last night, reports feeling depressed but less so today. She also admitted to having had razors in her room which she had planned to cut she has stockpiled and was taking well. Discussion about the dangers of taking these [id number] medications along with having access to razors will increase her risk of self-harm which she acknowledges. Review of Systems Except as stated in HPI: all other systems reviewed are Neg Mental Status Examination Appearance: Appropriate Consciousness: Alert Orientation: Person, Place, Date/Time Speech: Unremarkable Language: Adequate Fund of Knowledge: Inadequate Attention and Concentration: Adequate Memory: Unremarkable Mood: Sad Affect: Blunt Thought Process & Associations: Linear, Other ([place]) Thought Content: Appropriate, Other (Noted to be somewhat internally preoccupied) Hallucination Type: Auditory (Denies today), Visual (Denies today) Delusion Type: Paranoid Suicidal Ideation: Yes (Denies today) Suicidal Plan: No Suicidal Intention: No Homicidal Ideation: No Homicidal Plan: No Homicidal Intention: No Insight: Poor Judgment: Poor Results Vitals/IOs Vital Signs Date Time Temp Pulse Resp B/P (MAP) Pulse Ox O2 Delivery O2 Flow Rate FiO2 05/02/17 06:03 98.1 67 17 119/57 (77) 96 Assessment & Plan Problem List: (1) Schizoaffective disorder ICD Codes: F25.9 - Schizoaffective disorder Status: Acute Assessment & Plan Patient at this time continued with depressed mood but improving, continues with suicidal ideation but denied today along with no auditory hallucinations since this morning. Patient appear to be responding to current treatment regimen, we will continue current treatment. We will continue to monitor mood and behavior. Continue to encourage patient to maintain adequate p.o. intake, weakness of personal hygiene and participation in groups and activities. Continue recommendations as per primary medical team. Discharge planning in progress Justification for Cont. Inpt. At risk for further decompensation if at lower level of care. Discharge Planning Back to Jose Garcia MD May 02, 2017 19:00
[2017-05-03 05:30] VITALS: BP 125/68; PULSE 72; RESP 16; TEMP 97.8; O2SAT 93
[2017-05-03] MEDS: PRAVASTATIN SOD 20 MG TAB PO SCH (10:24)
[2017-05-03] MEDS: SENNOSIDES 8.6 MG TAB PO SCH ×2 (10:24→21:14)
[2017-05-03] MEDS: MULTIVITAMIN TAB PO SCH (10:24)
[2017-05-03] MEDS: QUEtiapine FUMARATE 100 MG TAB PO SCH ×2 (10:24→21:14)
[2017-05-03] MEDS: PARoxetine HCL 20 MG TAB PO SCH (10:25)
[2017-05-03] MEDS: CALCIUM/VITAMIN D 250 MG/125 U TAB PO SCH (10:26)
--- NOTE | 2017-05-03 12:10 | HHI.PYPN ---
Subjective Remarks Pt seen and discussed with staff. She reports that mood is better today. Little insight into actions at halfway (hiding sharps and medications) but has been cooperative with care. No SI/HI. She denies psychosis. Mental Status Examination Appearance: Appropriate Consciousness: Alert Orientation: Person, Place, Date/Time Speech: Unremarkable Language: Adequate Fund of Knowledge: Inadequate Attention and Concentration: Adequate Memory: Unremarkable Mood: Sad Affect: Blunt Thought Process & Associations: Linear, Other ([place]) Thought Content: Appropriate, Other (Noted to be somewhat internally preoccupied) Hallucination Type: Auditory (Denies today), Visual (Denies today) Delusion Type: Paranoid Suicidal Ideation: Yes (Denies today) Suicidal Plan: No Suicidal Intention: No Homicidal Ideation: No Homicidal Plan: No Homicidal Intention: No Insight: Poor Judgment: Poor Results Vitals/IOs Vital Signs Date Time Temp Pulse Resp B/P (MAP) Pulse Ox O2 Delivery O2 Flow Rate FiO2 05/03/17 05:30 97.8 72 16 125/68 (87) 93 Assessment & Plan Problem List: (1) Schizoaffective disorder ICD Codes: F25.9 - Schizoaffective disorder Status: Acute Assessment & Plan Pt improving. Continue current tx plan. Estimated LOS: days Justification for Cont. Inpt. risk of decompensation Eli Erazo MD May 03, 2017 12:10
[2017-05-03 12:50] LABS: CALCIUM 9.7 MG/DL (8.5-10.1); CREATININE 0.96 MG/DL (0.50-1.00)
--- NOTE | 2017-05-03 14:07 | HHI.PR ---
Subjective Remarks Follow-up visit for hypertension and diabetes. Patient seen and examined resting in bed comfortably in no acute distress. She denies any headache, dizziness, fevers, chills, vomiting, diarrhea, or abdominal pain. She does mention to me that earlier today she noticed some spotting which she believes was vaginal bleeding. Reports her last Pap smear was a year ago and was normal , due in June for Pap smear again. She has not had a period in over a year, no abdominal pain or discomfort, denies any other discharge. Objective Vitals Vital Signs Date Time Temp Pulse Resp B/P (MAP) Pulse Ox O2 Delivery O2 Flow Rate FiO2 05/03/17 05:30 97.8 72 16 125/68 (79) 93 Result Diagram: 04/29/17 2202 05/03/17 1130 Objective Remarks GENERAL: This is a well-nourished, obese female resting in bed comfortably. SKIN: No rashes. Cool and dry. HEAD: Atraumatic. Normocephalic. EYES: Pupils equal round and reactive. No scleral icterus. No injection or drainage. ENT: Airway patent. NECK: Trachea midline. CARDIOVASCULAR: Regular rate and rhythm without murmurs, gallops, or rubs. RESPIRATORY: Clear to auscultation. Breath sounds equal bilaterally. No wheezes , rales, or rhonchi. GASTROINTESTINAL: Abdomen soft, obese, non-tender. No guarding. MUSCULOSKELETAL: Extremities without clubbing, cyanosis, or edema. NEUROLOGICAL: Awake and alert. Motor and sensory grossly within normal limits. Moves all extremities. Normal speech. A/P Assessment and Plan 51-year-old female with past medical history significant for HTN, diabetes, hypercholesterolemia, sleep apnea, schizoaffective disorder, and obesity who presents to the emergency department under Serrano act after patient was having increasing episodes of agitation at [facility] consulted for medical management. Schizoaffective disorder -Management per psychiatry team Hypertension, controlled -Not on antihypertensive medications. -Can follow-up with PCP for ongoing monitoring of blood pressure. -At the current moment her blood pressure is well controlled without any medications. Diabetes -Continue 1800 ADA diet, resume metformin 500 mg daily. -Hemoglobin A1c 6.3-->pre-DM Hypercholesterolemia -Continue home dose pravastatin FRANKLYN - Increase in Creatinine from 0.9-->1.35, GRF 67-->42 -BMP from this morning reviewed, creatinine 0.96, GFR 62 -Metformin resumed ? Vaginal spotting -Advised patient to follow-up with her PCP/HEALTH COMMISSIONER to further discuss DVT prophylaxis-ambulating Discussed with nurse. [facility] will sign off, please reconsult if needed. Willian Lara May 03, 2017 14:07
[2017-05-03 18:15] VITALS: BP 130/60; PULSE 77; RESP 16; TEMP 97.9; O2SAT 92
[2017-05-04 05:27] VITALS: BP 142/69; PULSE 68; RESP 20; TEMP 97.6; O2SAT 94
[2017-05-04] MEDS: MULTIVITAMIN TAB PO SCH (09:28)
[2017-05-04] MEDS: PRAVASTATIN SOD 20 MG TAB PO SCH (09:29)
[2017-05-04] MEDS: CALCIUM/VITAMIN D 250 MG/125 U TAB PO SCH (09:29)
[2017-05-04] MEDS: PARoxetine HCL 20 MG TAB PO SCH (09:30)
[2017-05-04] MEDS: SENNOSIDES 8.6 MG TAB PO SCH ×2 (09:30→20:23)
[2017-05-04] MEDS: QUEtiapine FUMARATE 100 MG TAB PO SCH ×2 (09:30→20:23)
[2017-05-04] MEDS: metFORMIN HCL 500 MG TAB PO SCH (10:07)
--- NOTE | 2017-05-04 16:54 | HHI.PYPN ---
Subjective Remarks Pt seen and discussed with staff. She reports that she has not had AH today and has been in a better mood today. She has not attended groups but did spend time in the day room. She is compliant with medications. No outbursts or agitation. Mental Status Examination Appearance: Appropriate Consciousness: Alert Orientation: Person, Place, Date/Time Speech: Unremarkable Language: Adequate Fund of Knowledge: Inadequate Attention and Concentration: Adequate Memory: Unremarkable Mood: Sad Affect: Blunt Thought Process & Associations: Linear, Other ([place]) Thought Content: Appropriate, Other (Noted to be somewhat internally preoccupied) Hallucination Type: None Delusion Type: None Suicidal Ideation: No Suicidal Plan: No Suicidal Intention: No Homicidal Ideation: No Homicidal Plan: No Homicidal Intention: No Insight: Fair Judgment: Impulsive Results Vitals/IOs Vital Signs Date Time Temp Pulse Resp B/P (MAP) Pulse Ox O2 Delivery O2 Flow Rate FiO2 05/04/17 05:27 97.6 68 20 142/69 (93) 94 Assessment & Plan Problem List: (1) Schizoaffective disorder ICD Codes: F25.9 - Schizoaffective disorder Status: Acute Assessment & Plan Continue current tx plan. Estimated LOS: days Justification for Cont. Inpt. risk of decompensation Eli Erazo MD May 04, 2017 16:54
[2017-05-04 17:04] VITALS: BP 149/75; PULSE 72; RESP 18; TEMP 98.1; O2SAT 99
[2017-05-05 05:42] VITALS: BP 146/78; PULSE 75; RESP 20; TEMP 97.6
[2017-05-05] MEDS: QUEtiapine FUMARATE 100 MG TAB PO SCH (08:20)
[2017-05-05] MEDS: SENNOSIDES 8.6 MG TAB PO SCH (08:20)
[2017-05-05] MEDS: MULTIVITAMIN TAB PO SCH (08:20)
[2017-05-05] MEDS: CALCIUM/VITAMIN D 250 MG/125 U TAB PO SCH (08:20)
[2017-05-05] MEDS: metFORMIN HCL 500 MG TAB PO SCH (08:20)
[2017-05-05] MEDS: PRAVASTATIN SOD 20 MG TAB PO SCH (08:21)
[2017-05-05] MEDS: PARoxetine HCL 20 MG TAB PO SCH (08:21)
[2017-05-05] MEDS ORDERED: QUET1TAB8 PO (13:02)
[2017-05-05] MEDS ORDERED: SENN8.6T36 PO (13:02)
[2017-05-05] MEDS ORDERED: PRAV20TA2 PO (13:02)
[2017-05-05] MEDS ORDERED: MULTTAB67 PO (13:02)
[2017-05-05] MEDS ORDERED: PALI234P IM (13:02)
[2017-05-05] MEDS ORDERED: METF500T PO (13:02)
[2017-05-05] MEDS ORDERED: PARO30TA2 PO (13:02)
--- NOTE | 2017-05-05 13:05 | HHI.DS ---
Psychiatry Discharge Summary Inpatient Psychiatric care?: Yes Advance Directive: No Reason Not Provided: declined Mental Health AdvanceDirective: No Health Care Proxy: No Admission Admission Date Apr 30, 2017 at 04:57 Admission Diagnosis: (1) Schizoaffective disorder ICD Code: F25.9 - Schizoaffective disorder Brief History Patient is a 51-year-old woman single with 6 children domiciled alone in an assisted living facility, [facility], unemployed on [facility], with past psychiatric history of schizoaffective disorder multiple psychiatric admissions last time in November 2014 at [place], multiple suicide attempts and self- injurious behavior with past medical history significant for hypertension diabetes Little brought in the Serrano act by physician at her facility due to noncompliance with treatment, increasing agitation, and isolating self in room patient was admitted to the inpatient psychiatry for further evaluation and management. Patient was found lying in hospital bed, cooperative stating that she is in the hospital because she was not taking her medications for the past 7 days. Patient was noted to be poor historian S most answers to questions have been "I do not remember or I do not know". Patient states that she was brought in by her FACT team to 2 commendatory hallucinations for the past 3 days to hurt herself. Patient reports feeling a little depressed, endorsing some visual hallucinations but did not elaborate. Patient also denying suicidal or homicidal ideations or delusions at this time. Patient admitted to locked herself in her room for the past couple of days and not eating well but reports no difficulty with sleep, energy, concentration or appetite. Patient reports she is feeling "okay" denies any perceptual disturbances at time of interview. Collateral contact: Wastewater Technician Rajni from [facility], FACT team -[phone]. Collateral information was obtained from multi media specialist who reported the patient tried to admission stopped taking her medications as well as cheeking her medications. She also mentions that patient was thought probably diuretics, diet pills and laxatives that were hidden in her room as well as razors. Family psychiatric history: Patient reports an aunt with diagnosis of depression , no suicides in the family The patient is a 51-year-old woman, domiciled in a residential facility, [facility], single, mother of 6 kids, unemployed, supported by [facility] , with psychiatric history of schizoaffective disorder, multiple psychiatric hospitalizations, previous suicidal attempts, establish outpatient care with fact team, medical history of diabetes, obesity and hypertension, brought under serrano act by physician at her facility due to noncompliance with treatment, increasing agitation, and isolating self in room patient was admitted to the inpatient psychiatry for further evaluation and management. Consulted to live for second opinion. On psychiatric evaluation the patient is found in bed, she is awake, calm, cooperative, pleasant, she reports that he doesn't really know the reason she was hospitalized. She has been taking her medications, she does not remember the name of the medication that she is taking, she reports good mood, denies depression, denies anxiety, is logical, coherent, but has a prominent concrete thought process, denies suicidal and homicidal ideation, denies visual hallucinations, but reports commanding-type auditory hallucinations of voices telling her to currently to kill herself. Tobacco Use In Past 30 Days: No Tobacco Past 30 Days Alcohol Use: Never Hospital Course Patient is a 51-year-old woman single with 6 children domiciled alone in an assisted living facility, [facility], unemployed on [facility], with past psychiatric history of schizoaffective disorder multiple psychiatric admissions last time in November 2014 at [place], multiple suicide attempts and self- injurious behavior with past medical history significant for hypertension diabetes Little brought in the Serrano act by physician at her facility due to noncompliance with treatment, increasing agitation, and isolating self in room patient was admitted to the inpatient psychiatry for further evaluation and management. Due to active psychotic symptoms as well as paranoia and disorganization, quetiapine was started for psychosis as patient had responded previously to this agent as well as provided with Invega Sustenna 234mg IM on , continued on paroxetine 30mg PO daily. Patient was noted to be withdrawn , poor nutritional intake, and isolative initially but with continued treatment was noted to have progressive improvement of mood, cessation of auditory hallucinations, and compliant with treatment. Patient was cooperative with staff, had no behavioral dyscontrol, and participated in groups and activities. Upon discharge patient stated that she was feeling good, denied any psychotic symptoms, denied any SI, HI or delusions. Patient agreed to continue medication regimen and outpatient follow up for continuity of care. [facility] FACT team was notified of patients discharge back to her assisted living facility. I have counseled the patient regarding warning signs for need to return to the psychiatric emergency room as part of a general safety plan. Patient advised to call 911 or go nearest ED in case of emergency. Patient agrees with plan. Results Blood Pressure 146 / 78 Vital Signs Date Time Temp Pulse Resp B/P (MAP) Pulse Ox O2 Delivery O2 Flow Rate FiO2 05/05/17 05:42 97.6 75 20 146/78 (100) 05/04/17 17:04 99 Laboratory Tests Test 05/03/17 11:30 Anion Gap 4 MEQ/L (5-15) Estimat Glomerular Filtration Rate 62 ML/MIN (>89) Laboratory Results Test 05/01/17 07:32 Cholesterol Level 186 MG/DL (120-200) HDL Cholesterol 38.6 MG/DL (40.0-60.0) Hemoglobin A1c 6.3 % (4.3-6.0) LDL Cholesterol 112 MG/DL (0-99) Triglycerides Level 175 MG/DL (42-150) Summary of Procedures none Pending results at discharge: No Medications # of Antipsychotic meds at D/C: 1 Approp Antipsych med options 1 - Minimum of three failed multiple trials of monotherapy. 2 - Documented plan to taper to monotherapy due to previous use of multiple meds OR cross-taper in progress at D/C. 3 - Documentation of augmentation of Clozapine. 4 - Justification other than those listed in allowable values 1-3, document here : Discharge Discharge Date: May 05, 2017 Discharge Diagnosis: (1) Schizoaffective disorder ICD Code: F25.9 - Schizoaffective disorder Status: Acute Pt Condition on Discharge: Stable Discharge Disposition: ACLF/BRAD Discharge Instructions Diet Instructions: Heart Healthy Diet Activities you can perform: Weight Bearing as Andres Scheduled Appointment: Robb Garza Discharge Time > 30 minutes Mental Status Examination Appearance: Appropriate Consciousness: Alert Orientation: Person, Place, Date/Time Motor Activity: Normal gait Speech: Unremarkable Language: Adequate Fund of Knowledge: Inadequate Attention and Concentration: Adequate Memory: Unremarkable Mood: Appropriate Affect: Appropriate Thought Process & Associations: Intact, Linear Thought Content: Appropriate Hallucination Type: None Delusion Type: None Suicidal Ideation: No Suicidal Plan: No Suicidal Intention: No Homicidal Ideation: No Homicidal Plan: No Homicidal Intention: No Insight: Fair Judgment: Impulsive Discharge/Advance Care Plan Health Problems: (1) Schizoaffective disorder Goals to promote your health * To prevent worsening of your condition and complications * To maintain your health at the optimal level Directions to meet your goals Take your medications as prescribed Follow your dietary instruction Follow activity as directed Keep your appointments as scheduled Take your immunizations and boosters as scheduled If your symptoms worsen call your PCP, if no PCP go to Urgent Care Center or Emergency Room For 30/09 questions related to your inpatient stay or results of tests pending at discharge, please contact Dr. Jose Billingsley at Smoking is Dangerous to Your Health. Avoid second hand smoking Jose Billingsley MD May 05, 2017 13:05
== END 2017-05-05 14:55 | DRG 885 ==
LOC: NEPD 20:40 → NEDA 04-30 04:57 → H260 04-30 05:20
PROVIDERS: ADMIT Student in an Organized Health Care Education/Training Program; ATTEND Student in an Organized Health Care Education/Training Program
DX: F25.9 Schizoaffective disorder, unspecified (principal); N17.9 Acute kidney failure, unspecified; Z68.42 Body mass index [BMI] 45.0-49.9, adult; R45.851 Suicidal ideations; E11.9 Type 2 diabetes mellitus without complications; Z91.14 Patient's other noncompliance with medication regimen; I10 Essential (primary) hypertension; E66.9 Obesity, unspecified; G47.30 Sleep apnea, unspecified; E78.00 Pure hypercholesterolemia, unspecified; F31.9 Bipolar disorder, unspecified; F41.9 Anxiety disorder, unspecified; R51 Headache; Z81.8 Family history of other mental and behavioral disorders; Z79.84 Long term (current) use of oral hypoglycemic drugs; Z91.5 Personal history of self-harm; Z23 Encounter for immunization
CPT/HCPCS: 80048; 80053; 80061; 80307; 83036; 85025; 90686; J2426; Q2038

== ENCOUNTER 2017-09-19 12:55 | Observation (INO) ==
--- NOTE | 2017-09-19 16:01 | ED ---
HPI General Chief Complaint: Psychiatric Symptoms Stated Complaint: Psych Screen Time Seen by Provider: 09/19/17 15:34 Source: patient, RN notes reviewed and old records reviewed Mode of arrival: ambulatory Limitations: no limitations History of Present Illness HPI Narrative: 51-year-old female presents to the emergency department for psychiatric evaluation. Patient complains of sleep deprivation and being suicidal for 1 week. She states her plan would be "overdosing on medications". She states that she has not done anything at this time to hurt herself. She is reports history of depression anxiety. She denies any alcohol, tobacco, illicit drug use. Of note, oxygen saturation is 90% on room air. When lying flat, the oxygen saturation is 85%. The patient denies any history of COPD or asthma. When asked if she feels short of breath, she states that she has been feeling slightly short of breath for the past week. She denies chest pain. She denies any leg edema. She is not on control pills. No history of DVT or PE. No hemoptysis. Patient denies any recent surgery or travel. Moderate severity. MD complaint: suicidal ideation and feels depressed Onset (ago): week(s) (1) Duration: constant History of same: Yes Relieving factors: none Exacerbating factors: none Associated psychiatric symptoms: depression and suicidal ideation Associated symptoms: shortness of breath Treatments prior to arrival: none Details of plan: "overdose on meds" Related Data Allergies Allergy/AdvReac Type Severity Reaction Status Date / Time lamotrigine Allergy Mild Rash Verified 09/20/17 09:50 Review of Systems Except as stated in HPI: all other systems reviewed are negative PMFSH History History Provided By: Patient Social History Social History Substance History: No History of Abuse Second Hand Smoke Exposure: No Smoking Status: Never smoker How Often Do You Have a Drink Containing Alcohol: Never Exam Narrative Exam Narrative: GENERAL: Well-nourished, well-developed female patient, afebrile SKIN: Focused skin assessment warm/dry. HEAD: Normocephalic. Atraumatic EYES: No scleral icterus. No injection or drainage. NECK: Supple, trachea midline. No JVD or lymphadenopathy. CARDIOVASCULAR: Regular rate and rhythm without murmurs, gallops, or rubs. Bilateral radial and pedal pulses 2+ RESPIRATORY: Breath sounds equal bilaterally. No accessory muscle use. Lung sounds are clear to auscultation GASTROINTESTINAL: Abdomen soft, non-tender, nondistended. MUSCULOSKELETAL: No cyanosis, or edema. BACK: No obvious deformity. PSYCHIATRIC: No delusional thought processes. No hallucinations. Course Initial Documented Vital Signs Temperature 98.5 F 09/19/17 14:27 Pulse Rate 67 09/19/17 14:27 Blood Pressure 150/71 H 09/19/17 14:27 Pulse Oximetry 90 L 09/19/17 14:27 Last Documented Vital Signs Temperature 98.1 F 09/20/17 11:51 Pulse Rate 75 09/20/17 11:51 Respiratory Rate 16 09/20/17 11:51 Blood Pressure 132/67 09/20/17 11:51 Pulse Oximetry 93 L 09/20/17 11:51 Sign Out Sign Out Data: Patient Sign Out occurred on 09/19/17 at 19:08. Patient's care was discussed, and care was transferred from OCHOA Tinoco to TYREE Nieves. Sign Out Comment: Signed out to TYREE Garcia, awaiting lab results Last updated by Neida Hogue ARNP at 09/19/17 19:02 Post-Handoff Eval: Please see previous providers notes for complete history of present illness. I assumed care of this patient pending lab work and imaging studies. Briefly this is a 51-year-old female who reports feelings of depression and she presented here for voluntary psychiatric evaluation. Her oxygen saturation was noted to be 90% on room air when sitting upright and in retrospect the patient reports dyspnea on exertion for the past 2 weeks. Specifically she reports that she gets out of breath when she walks approximately 1 block. Denies chest pain, lower extremity edema, abdominal pain, nausea or vomiting. No history of CHF, COPD, asthma, she does not use tobacco products. Denies cough or congestion. She reports that she is a resident of [facility] but she does not know why she lives there. She reports a history of diabetes. The patient's lab work imaging studies have been reviewed. Her lab work is unremarkable. Her d-dimer is within normal limits. Her BNP is within normal limits. Chest x-ray reveals cardiomegaly. ABG on 2 L reveals pH 7.37, PCO2 50.6, PO2 of 85.7. The patient was ambulated and she is 97% on room air during ambulation she has dyspnea with exertion. DuoNeb treatment has been ordered although the patient has no wheezing. At this point time the plan would be to admit the patient medically for further evaluation of hypoxia dyspnea on exertion. Discussed with Dr. Mayfield who is agreeable. Medical Decision Making MDM Narrative Medical decision making narrative: 51-year-old female presents to the emergency department voluntarily for depression and suicidal ideation. However, her oxygen saturation is 90% on room air without history of asthma or COPD. She does report feeling mildly short of breath. EKG, CBC, BMP, magnesium, CK, troponin, TSH, PTT, PT/INR, d-dimer, alcohol level, urine drug screen, UPT are ordered and pending. Chest x-ray is ordered and pending. EKG [-]. CBC [-]. CMP [-]. Magnesium [-]. CK [-]. Troponin [-]. TSH [-]. PTT [-]. PT/INR [-]. UDS [-]. UPT [-]. Alcohol level [-]. Chest x-ray [-]. Differential Diagnosis Differential Diagnosis: Depression versus anxiety versus suicidal ideation versus pneumonia versus pneumothorax versus ACS versus PE Medical Records Medical records reviewed: Yes I reviewed the patient's medical records. Lab Data Lab results reviewed: Yes I reviewed the patient's lab results. Result diagrams: 09/20/17 09:40 09/20/17 09:40 Lab Results 09/19/17 09/19/17 09/19/17 Range/Units 18:30 18:30 18:30 WBC 8.1 (4.0-11.0) th/mm3 RBC 4.33 (4.00-5.30) mil/mm3 Hgb 12.8 (11.6-15.3) gm/dL Hct 39.0 (35.0-46.0) % MCV 90.1 (80.0-100.0) fL MCH 29.6 (27.0-34.0) pg MCHC 32.9 (32.0-36.0) % RDW 14.5 (11.6-17.2) % Plt Count 239 (150-450) th/mm3 MPV 7.7 (7.0-11.0) fL Neut % (Auto) 64.5 (16.0-70.0) % Lymph % (Auto) 25.6 (9.0-44.0) % [place] % (Auto) 5.1 (0.0-8.0) % Eos % (Auto) 4.0 (0.0-4.0) % Baso % (Auto) 0.8 (0.0-2.0) % Neut # (Auto) 5.2 (1.8-7.7) th/mm3 Lymph # (Auto) 2.1 (1.0-4.8) th/mm3 [place] # (Auto) 0.4 (0.0-0.9) th/mm3 Eos # (Auto) 0.3 (0.0-0.4) th/mm3 Baso # (Auto) 0.1 (0.0-0.2) th/mm3 WBC Differential . Differential Comment Auto diff final PT 10.2 (9.8-11.6) sec INR 1.0 Ratio APTT 26.0 (24.3-30.1) sec D-Dimer Quant (PE/DVT) 0.34 (0.00-0.50) mg/L FEU Puncture Site Patient Temperature O2 Saturation (90-100) % ABG pH (7.380-7.420) ABG pCO2 (38-42) mmHg ABG pO2 (61-120) mmHg ABG HCO3 (22-26) mmol/L ABG O2 Content (12.0-20.0) Vol % ABG Base Excess (-2-2) mmol/L ABG Methemoglobin (0-2) % Hemoglobin (12.0-16.0) G/DL Carboxyhemoglobin (0-4) % O2 Delivery Device Liter Flow L/M Inspired O2 % Critical Value Sodium 141 (136-145) meq/L Potassium 4.2 (3.5-5.1) meq/L Chloride 101 (98-107) meq/L Carbon Dioxide 31.5 (21.0-32.0) meq/L Anion Gap 9 (5-15) meq/L BUN 9 (7-18) mg/dL Creatinine 0.81 (0.50-1.00) mg/dL Estimated GFR 75 L (>89) mL/min Random Glucose 93 (74-106) mg/dL Calcium 9.7 (8.5-10.1) mg/dL Magnesium 2.2 (1.5-2.5) mg/dL Total Bilirubin 0.2 (0.2-1.0) mg/dL AST 29 (15-37) U/L ALT 51 (10-53) U/L Alkaline Phosphatase 100 (45-117) U/L Total Creatine Kinase 43 (26-192) U/L Troponin I Less than 0.02 L (0.02-0.05) ng/mL B-Natriuretic Peptide (0-100) pg/mL Total Protein 7.2 (6.4-8.2) g/dL Albumin 3.3 L (3.4-5.0) g/dL TSH 2.230 (0.358-3.740) uIU/mL Serum Alcohol Less than 3 (0-5) mg/dL 09/19/17 09/19/17 09/20/17 Range/Units 18:30 20:05 03:41 WBC (4.0-11.0) th/mm3 RBC (4.00-5.30) mil/mm3 Hgb (11.6-15.3) gm/dL Hct (35.0-46.0) % MCV (80.0-100.0) fL MCH (27.0-34.0) pg MCHC (32.0-36.0) % RDW (11.6-17.2) % Plt Count (150-450) th/mm3 MPV (7.0-11.0) fL Neut % (Auto) (16.0-70.0) % Lymph % (Auto) (9.0-44.0) % [place] % (Auto) (0.0-8.0) % Eos % (Auto) (0.0-4.0) % Baso % (Auto) (0.0-2.0) % Neut # (Auto) (1.8-7.7) th/mm3 Lymph # (Auto) (1.0-4.8) th/mm3 [place] # (Auto) (0.0-0.9) th/mm3 Eos # (Auto) (0.0-0.4) th/mm3 Baso # (Auto) (0.0-0.2) th/mm3 WBC Differential Differential Comment PT (9.8-11.6) sec INR Ratio APTT (24.3-30.1) sec D-Dimer Quant (PE/DVT) (0.00-0.50) mg/L FEU Puncture Site Left brachial Patient Temperature 98.6 O2 Saturation 94 (90-100) % ABG pH 7.38 (7.380-7.420) ABG pCO2 55 H* (38-42) mmHg ABG pO2 86 (61-120) mmHg ABG HCO3 32 H (22-26) mmol/L ABG O2 Content 17.0 (12.0-20.0) Vol % ABG Base Excess 6.4 H (-2-2) mmol/L ABG Methemoglobin 0.8 (0-2) % Hemoglobin 12.8 (12.0-16.0) G/DL Carboxyhemoglobin 1.4 (0-4) % O2 Delivery Device Nasal cannula Liter Flow 2.00 L/M Inspired O2 21 % Critical Value Yes Sodium (136-145) meq/L Potassium (3.5-5.1) meq/L Chloride (98-107) meq/L Carbon Dioxide (21.0-32.0) meq/L Anion Gap (5-15) meq/L BUN (7-18) mg/dL Creatinine (0.50-1.00) mg/dL Estimated GFR (>89) mL/min Random Glucose (74-106) mg/dL Calcium (8.5-10.1) mg/dL Magnesium (1.5-2.5) mg/dL Total Bilirubin (0.2-1.0) mg/dL AST (15-37) U/L ALT (10-53) U/L Alkaline Phosphatase (45-117) U/L Total Creatine Kinase 28 (26-192) U/L Troponin I (0.02-0.05) ng/mL B-Natriuretic Peptide 21 (0-100) pg/mL Total Protein (6.4-8.2) g/dL Albumin (3.4-5.0) g/dL TSH (0.358-3.740) uIU/mL Serum Alcohol (0-5) mg/dL 09/20/17 09/20/17 09/20/17 Range/Units 09:40 09:40 09:40 WBC 7.4 (4.0-11.0) th/mm3 RBC 4.26 (4.00-5.30) mil/mm3 Hgb 12.4 (11.6-15.3) gm/dL Hct 38.6 (35.0-46.0) % MCV 90.8 (80.0-100.0) fL MCH 29.1 (27.0-34.0) pg MCHC 32.0 (32.0-36.0) % RDW 14.6 (11.6-17.2) % Plt Count 206 (150-450) th/mm3 MPV 7.4 (7.0-11.0) fL Neut % (Auto) 73.4 H (16.0-70.0) % Lymph % (Auto) 17.8 (9.0-44.0) % [place] % (Auto) 4.8 (0.0-8.0) % Eos % (Auto) 3.6 (0.0-4.0) % Baso % (Auto) 0.4 (0.0-2.0) % Neut # (Auto) 5.4 (1.8-7.7) th/mm3 Lymph # (Auto) 1.3 (1.0-4.8) th/mm3 [place] # (Auto) 0.4 (0.0-0.9) th/mm3 Eos # (Auto) 0.3 (0.0-0.4) th/mm3 Baso # (Auto) 0.0 (0.0-0.2) th/mm3 WBC Differential . Differential Comment Auto diff final PT (9.8-11.6) sec INR Ratio APTT (24.3-30.1) sec D-Dimer Quant (PE/DVT) (0.00-0.50) mg/L FEU Puncture Site Patient Temperature O2 Saturation (90-100) % ABG pH (7.380-7.420) ABG pCO2 (38-42) mmHg ABG pO2 (61-120) mmHg ABG HCO3 (22-26) mmol/L ABG O2 Content (12.0-20.0) Vol % ABG Base Excess (-2-2) mmol/L ABG Methemoglobin (0-2) % Hemoglobin (12.0-16.0) G/DL Carboxyhemoglobin (0-4) % O2 Delivery Device Liter Flow L/M Inspired O2 % Critical Value Sodium 139 (136-145) meq/L Potassium 4.0 (3.5-5.1) meq/L Chloride 101 (98-107) meq/L Carbon Dioxide 30.6 (21.0-32.0) meq/L Anion Gap 7 (5-15) meq/L BUN 9 (7-18) mg/dL Creatinine 0.77 (0.50-1.00) mg/dL Estimated GFR 80 L (>89) mL/min Random Glucose 100 (74-106) mg/dL Calcium 9.1 (8.5-10.1) mg/dL Magnesium (1.5-2.5) mg/dL Total Bilirubin 0.4 (0.2-1.0) mg/dL AST 29 (15-37) U/L ALT 52 (10-53) U/L Alkaline Phosphatase 94 (45-117) U/L Total Creatine Kinase 25 L (26-192) U/L Troponin I (0.02-0.05) ng/mL B-Natriuretic Peptide (0-100) pg/mL Total Protein 7.1 (6.4-8.2) g/dL Albumin 3.2 L (3.4-5.0) g/dL TSH (0.358-3.740) uIU/mL Serum Alcohol (0-5) mg/dL Imaging Data Radiologist's impression: Chest X-Ray 09/19/17 15:58 CONCLUSION: Moderate cardiomegaly Minimal parenchymal changes left base. No significant failure. Discharge Plan Discharge Disposition Patient Disposition: 30 Still Patient Discharge Condition Condition: Stable Discharge Details Diagnosis: Hypoxia, MUNSON (dyspnea on exertion), Depression (emotion) Physicians Team ED Provider: Reji Haro ED Midlevel Provider: Jose Renae Primary Care Provider: UNKNOWN, Attending Provider: Daryn Varma Other Providers: Osvaldo Barakat Arjun Status ED Status: Left Department Discharge Information Discharge Date/Time: 09/19/17 22:45 Addendum entered and electronically signed by OCHOA Tinoco 09/20/17 07 :03: Patient was signed out to TYREE Garcia, awaiting labs.
--- NOTE | 2017-09-19 16:41 | XR ---
EXAM DATE: 09/19/2017 4:28 PM EDT AGE/SEX: 51 years / Female INDICATIONS: Short of breath. CLINICAL DATA: This is the patient's initial encounter. Patient reports that signs and symptoms have been present for 1 week and indicates a pain score of 0/10. MEDICAL/SURGICAL HISTORY: None. None. COMPARISON: No prior exams available for comparison. FINDINGS: There is cardiomegaly without failure. There are minimal parenchymal changes left base. Right lung is clear. The portion of the bony skeleton visualized is unremarkable. CONCLUSION: Moderate cardiomegaly Minimal parenchymal changes left base. No significant failure. Electronically signed by: Jayden Castellanos MD 09/19/2017 4:40 PM EDT
[2017-09-19 19:09] LABS: Baso # (Auto) 0.1 th/mm3 (0.0-0.2); Baso % (Auto) 0.8 % (0.0-2.0); Eos # (Auto) 0.3 th/mm3 (0.0-0.4); Hemoglobin 12.8 gm/dL (11.6-15.3); Lymph # (Auto) 2.1 th/mm3 (1.0-4.8); Lymph % (Auto) 25.6 % (9.0-44.0); Mean Corpuscular HGB Conc 32.9 % (32.0-36.0); Mean Corpuscular Hemoglobin 29.6 pg (27.0-34.0); Mean Corpuscular Volume 90.1 fL (80.0-100.0); Mean Platelet Volume 7.7 fL (7.0-11.0); Mono # (Auto) 0.4 th/mm3 (0.0-0.9); Mono % (Auto) 5.1 % (0.0-8.0); Neut # (Auto) 5.2 th/mm3 (1.8-7.7); Neut % (Auto) 64.5 % (16.0-70.0); Platelet Count 239 th/mm3 (150-450); Red Blood Count 4.33 mil/mm3 (4.00-5.30); Red Cell Distribution Width 14.5 % (11.6-17.2); White Blood Count 8.1 th/mm3 (4.0-11.0)
[2017-09-19 19:24] LABS: Prothrombin Time 10.2 sec (9.8-11.6)
[2017-09-19 19:27] LABS: Alanine Aminotransferase 51 U/L (10-53)
[2017-09-19 19:28] LABS: D-Dimer 0.34 mg/L FEU (0.00-0.50)
[2017-09-19 19:33] LABS: Albumin 3.3 g/dL (3.4-5.0); Anion Gap 9 meq/L (5-15); Aspartate Aminotransferase 29 U/L (15-37); Blood Urea Nitrogen 9 mg/dL (7-18); Calcium 9.7 mg/dL (8.5-10.1); Carbon Dioxide 31.5 meq/L (21.0-32.0); Chloride 101 meq/L (98-107); Glomerular Filtration Rate 75 mL/min (>89); Glucose,Random 93 mg/dL (74-106); Magnesium 2.2 mg/dL (1.5-2.5); Potassium 4.2 meq/L (3.5-5.1); Sodium 141 meq/L (136-145)
[2017-09-19 19:37] LABS: Alkaline Phosphatase 100 U/L (45-117); Total Protein 7.2 g/dL (6.4-8.2)
[2017-09-19 19:44] LABS: Creatine Kinase 43 U/L (26-192)
[2017-09-19] MEDS ORDERED: Bisacodyl 10 MG Supp RECTAL PRN (21:14)
--- NOTE | 2017-09-19 21:17 | P.HPIM ---
History of Present Illness Primary Care Physician: UNKNOWN History of Present Illness: This is a 51-year-old female with a PMH of Depression and Sleep Apnea who presents the ER for voluntary psychiatric evaluation due to suicidal ideation. While in ER, pt noted to have hypoxia w/ O2 sat 89% on RA, upon questioning, pt notes SOB w/ exertion for 1-2wks. Denies fever, chills, cough or chest pain. No previous h/o similar symptoms. BP 150/71, HR 67, O2 sat 89% on RA, Afebrile. CBC unremarkable. INR 1.0, d-dimer negative. Chemistry essentially unremarkable. Troponin negative. Alcohol negative. ABG pH 7.38, PCO2 55, PO2 86 on 2L NC. CXR with moderate cardiomegaly, no significant failure. On exam, patient with no wheezing, good air movement. - Diagnosis (1) Hypoxia (2) Depression (emotion) Inpatient Certification: I certify that the inpatient services were ordered in accordance with Medicare regulations governing the order. This includes certification that hospital inpatient services are reasonable and necessary and in the case of services not specified as inpatient-only under 42 CFR 419.22(n), that they are appropriately provided as inpatient services in accordance to with the 2-midnight benchmark under 43 CFR 412.3(e) Review of Systems All other systems reviewed negative except as stated in HPI PMFSH - History History Provided By: Patient - Tobacco History Tobacco Use In Past 30 Days: No Smoking Status: Never smoker - Alcohol History How Often Do You Have a Drink Containing Alcohol: Never - Substance Use History Substance History: No History of Abuse - Immunization History Tetanus Immunization: <5 Years Medications and Allergies Active Medications: Active Medications Acetaminophen (Tylenol) 650 mg PO Q4H PRN PRN Reason: Temp > 100.4 Albuterol (Duoneb Neb (Prn)) 1 ampul NEB Q4HR NEB PRN PRN Reason: SOB/WHEEZING Bisacodyl (Dulcolax Supp) 10 mg RECTAL DAILY PRN PRN Reason: SEVERE CONSITIPATION Lactulose (Lactulose Liq) 30 ml PO DAILY PRN PRN Reason: SEVERE CONSITIPATION Allergies Allergy/AdvReac Type Severity Reaction Status Date / Time lamotrigine Allergy Mild Rash Unverified 04/29/17 20:46 Exam Vital signs: Vital Signs 09/19/17 14:27 09/19/17 18:29 09/19/17 19:38 Temperature 98.5 F Pulse Rate 67 62 61 Respiratory Rate 17 18 Blood Pressure 150/71 H 117/60 121/57 L Pulse Oximetry 90 L 94 L 89 L Intake & Output 09/19/17 09/19/17 09/20/17 06:59 18:59 06:59 Weight 117.934 kg Narrative: PE: GENERAL: Very pleasant middle-aged white female in no acute distress. HEENT: PERRLA, EOMI. No scleral icterus or conjunctival pallor. No lid lag or facial droop. CARDIOVASCULAR: Regular rate and rhythm. No obvious murmurs to auscultation. No chest tenderness to palpation. RESPIRATORY: No obvious rhonchi or wheezing. Clear to auscultation. Breath sounds equal bilaterally. GASTROINTESTINAL: Abdomen soft, non-tender, nondistended. BS normal. MUSCULOSKELETAL: Extremities without clubbing, cyanosis, or edema. No obvious deformities. NEUROLOGICAL: Awake, alert and oriented x4. No focal neurologic deficits. Moving both upper and lower extremities spontaneously. Results - Labs CBC & Chem 7: 09/19/17 18:30 09/19/17 18:30 Labs: Short CBC 09/19/17 Range/Units 18:30 WBC 8.1 (4.0-11.0) th/mm3 Hgb 12.8 (11.6-15.3) gm/dL Hct 39.0 (35.0-46.0) % Plt Count 239 (150-450) th/mm3 BMP 09/19/17 18:30 Sodium 141 Potassium 4.2 Chloride 101 Carbon Dioxide 31.5 BUN 9 Creatinine 0.81 Calcium 9.7 Cardiac Enzymes 09/19/17 Range/Units 18:30 Total Creatine Kinase 43 (26-192) U/L Troponin I Less than 0.02 L (0.02-0.05) ng/mL Liver Function 09/19/17 Range/Units 18:30 Total Bilirubin 0.2 (0.2-1.0) mg/dL AST 29 (15-37) U/L ALT 51 (10-53) U/L Alkaline Phosphatase 100 (45-117) U/L Albumin 3.3 L (3.4-5.0) g/dL - Imaging Impressions Chest X-Ray 09/19/17 15:58 CONCLUSION: Moderate cardiomegaly Minimal parenchymal changes left base. No significant failure. Caprini VTE Risk Assessment Caprini VTE Risk Assessment: No/Low Risk (score <= 1) Caprini Risk Assessment Model: Point Value = 1 Point Value = 2 Point Value = 3 Point Value = 5 Age 41-60 Minor surgery BMI > 25 kg/m2 Swollen legs Varicose veins or History of unexplained or recurrent spontaneous Oral contraceptives or hormone replacement Sepsis (< 1 month) Serious lung disease, including pneumonia (< 1 month) Abnormal pulmonary function Acute myocardial infarction Congestive heart failure (< 1 month) History of inflammatory bowel disease Medical patient at bed rest Age 61-74 Arthroscopic surgery Major open surgery (> 45 min) Laparoscopic surgery (> 45 min) Malignancy Confined to bed (> 72 hours) Immobilizing plaster cast Central venous access Age >= 75 History of VTE Family history of VTE Factor V Leiden Prothrombin [id number] Lupus anticoagulant Anticardiolipin antibodies Elevated serum homocysteine Heparin-induced thrombocytopenia Other congenital or acquired thrombophilia Stroke (< 1 month) Elective arthroplasty Hip, pelvis, or leg fracture Acute spinal cord injury (< 1 month) Prophylaxis Regimen: Total Risk Factor Score Risk Level Prophylaxis Regimen 0-1 Low Early ambulation 2 Moderate Order ONE of the following: *Sequential Compression Device (SCD) *Heparin 5000 units SQ BID 3-4 Higher Order ONE of the following medications: *Heparin 5000 units SQ TID *Enoxaparin/Lovenox 40 mg SQ daily (WT < 150 kg, CrCl > 30 mL/min) *Enoxaparin/Lovenox 30 mg SQ daily (WT < 150 kg, CrCl > 10-29 mL/min) *Enoxaparin/Lovenox 30 mg SQ BID (WT < 150 kg, CrCl > 30 mL/min) AND/OR *Sequential Compression Device (SCD) 5 or more Highest Order ONE of the following medications: *Heparin 5000 units SQ TID (Preferred with Epidurals) *Enoxaparin/Lovenox 40 mg SQ daily (WT < 150 kg, CrCl > 30 mL/min) *Enoxaparin/Lovenox 30 mg SQ daily (WT < 150 kg, CrCl > 10-29 mL/min) *Enoxaparin/Lovenox 30 mg SQ BID (WT < 150 kg, CrCl > 30 mL/min) AND *Sequential Compression Device (SCD) Assessment and Plan - Assessment (1) Hypoxia Code(s): R09.02 - Hypoxemia Status: Acute (2) Depression (emotion) Code(s): F32.9 - Major depressive disorder, single episode, unspecified Status : Acute - Plan A/P: 1. Hypoxia: associated w/ SOB on exertion, progressively worse 1-2wks, no fever, chills, cough or chest pain. D-dimer negative. CXR w/moderate cardiomegaly, no overt failure, images reviewed by me. +symptomatic w/ ambulation. Admit for Observation, check Echo to eval for cardiomyopathy, monitor O2, check serial cardiac enzymes to eval for underlying ischemia. CPAP w/ home settings. DuoNeb prn. 2. Depression: w/ suicidal ideation, Voluntary, not on [place] Act. Consult Psych. 3. DVT Prophylaxis: SCD/Teds 4. Social work for d/c planning as needed. 5. Case discussed w/ ER physician at length, labs/records/imaging reviewed by me.
[2017-09-19 22:52] LABS: ABG Base Excess 6.4 mmol/L (-2-2); ABG PCO2 55 mmHg (38-42); ABG PO2 86 mmHg (61-120)
--- NOTE | 2017-09-20 08:21 | ECG ---
Date Performed: 09/19/2017 Time Performed: 18:47:41 PTAGE: 51 years EKG: Sinus rhythm NORMAL ECG PREVIOUS TRACING : 09/28/2013 22.46 DOCTOR: Dillon Seymour Interpretating Date/Time 09/20/2017 08:18:32
[2017-09-20] MEDS: Senna/Docusate Sodium 8.6/50 MG Tablet PO SCH ×2 (09:50→20:14)
[2017-09-20 10:06] LABS: Baso % (Auto) 0.4 % (0.0-2.0); Eos # (Auto) 0.3 th/mm3 (0.0-0.4); Eos % (Auto) 3.6 % (0.0-4.0); Hematocrit 38.6 % (35.0-46.0); Hemoglobin 12.4 gm/dL (11.6-15.3); Lymph # (Auto) 1.3 th/mm3 (1.0-4.8); Lymph % (Auto) 17.8 % (9.0-44.0); Mean Corpuscular Hemoglobin 29.1 pg (27.0-34.0); Mean Corpuscular Volume 90.8 fL (80.0-100.0); Mean Platelet Volume 7.4 fL (7.0-11.0); Mono # (Auto) 0.4 th/mm3 (0.0-0.9); Mono % (Auto) 4.8 % (0.0-8.0); Neut # (Auto) 5.4 th/mm3 (1.8-7.7); Neut % (Auto) 73.4 % (16.0-70.0); Platelet Count 206 th/mm3 (150-450); Red Blood Count 4.26 mil/mm3 (4.00-5.30); Red Cell Distribution Width 14.6 % (11.6-17.2); White Blood Count 7.4 th/mm3 (4.0-11.0)
[2017-09-20 10:25] LABS: Albumin 3.2 g/dL (3.4-5.0); Aspartate Aminotransferase 29 U/L (15-37); Blood Urea Nitrogen 9 mg/dL (7-18); Calcium 9.1 mg/dL (8.5-10.1); Carbon Dioxide 30.6 meq/L (21.0-32.0); Glomerular Filtration Rate 80 mL/min (>89); Glucose,Random 100 mg/dL (74-106)
[2017-09-20 10:27] LABS: Alanine Aminotransferase 52 U/L (10-53)
[2017-09-20 10:48] LABS: Alkaline Phosphatase 94 U/L (45-117); Anion Gap 7 meq/L (5-15); Chloride 101 meq/L (98-107); Sodium 139 meq/L (136-145); Total Protein 7.1 g/dL (6.4-8.2)
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
--- NOTE | 2017-09-20 15:52 | MB ---
cc: Christiano Key MD DATE: 09/20/2017 REQUESTING PHYSICIAN: Lyndsay Mayfield. REASON FOR COMPLAINT: Shortness of breath and hypoxia. HISTORY OF PRESENT ILLNESS: Ms. Zavala is a 51-year-old obese female with history of anxiety, depression, schizophrenia/schizoaffective disorder. She lives in a group living facility. The patient was brought to ER with suicidal ideation. She was thinking of committing suicide by overdosing on her oral medication. She was brought to the hospital, evaluated by psychiatrist. She was found to be hypoxic. She had a workup done. Her blood gas shows, on room air, pH 7.38, pCO2 of 55, pO2 of 86. WBC count is 7.4, hemoglobin 12.1, hematocrit 38.6, MCV 90, platelet count 206. INR 1.0. Sodium 113, potassium 4.0, chloride 101, CO2 of 30, BUN 9, creatinine 0.77. Her chest x-ray shows minimal parenchymal change at the bases. PAST MEDICAL HISTORY: Significant for schizoaffective disorder, anxiety, depression, possible sleep apnea and she also has cyst on the uterus and is planning to go for a biopsy. MEDICATIONS: She is currently taking acetaminophen, albuterol nebulizer treatment, Reglan 5 mg IV, temazepam 15 mg a day. ALLERGIES: SHE IS ALLERGIC TO LAMICTAL. SOCIAL HISTORY: She is single, lives in a group living facility. She is disabled, does not work. No history of smoking or alcohol abuse. FAMILY HISTORY: She has 6 children, has 4 siblings. REVIEW OF SYSTEMS: She walks short distance, has increased weight, has excessive sleepiness and does snore, has occasional headache. PHYSICAL EXAMINATION: GENERAL: Obese female, not in any acute distress. VITAL SIGNS: Blood pressure 132/67, heart rate 80, respirations 16, temperature 98.1. HEENT: Pupils are equal and reactive to light. Oral mucosa and nasal mucosa normal. NECK: Supple. JVP not raised. CHEST: Equal rise. No rhonchi. HEART: S1, S2 normal. ABDOMEN: Benign. EXTREMITIES: No edema. IMPRESSION: 1. Mild hypoxia with decompensated respiratory acidosis, hypoventilation syndrome, possible underlying sleep apnea. 2. Suicidal ideation. 3. Schizoaffective disorder. 4. Depression. PLAN: I discussed with the patient. Will check her pulmonary function study. Supplemental oxygen. She is clinically stable. She will need sleep study as outpatient. Further treatment pending the course in the hospital. Thank you, Dr. Asuncion Mayfield, for this consult. MD GINNY Ospina/SB , 03:22 PM , 03:50 PM VI
--- NOTE | 2017-09-20 16:20 | P.PN ---
Subjective Interval history: Follow up for hypoxia. The patient reports continued dyspnea, worse with exertion. Denies any rhinitis, congestion, or cough. Denies any chest pain or lower extremity edema, but does report occasional orthopnea. Denies any fevers/ chills. She reports she [facility] She denies any other medical complaints at this time. Physical Exam Vital signs: Vital Signs 09/19/17 18:29 09/19/17 19:38 09/19/17 19:45 Temperature Pulse Rate 62 61 59 L Respiratory Rate 17 18 18 Blood Pressure 117/60 121/57 L Pulse Oximetry 94 L 89 L 09/19/17 22:25 09/20/17 00:06 09/20/17 01:15 Temperature 96.7 F L 98.2 F Pulse Rate 67 96 H Respiratory Rate 21 21 Blood Pressure 125/74 127/59 L Pulse Oximetry 93 L 93 L 96 09/20/17 04:18 09/20/17 07:18 09/20/17 08:54 Temperature 98.0 F 97.5 F L Pulse Rate 68 71 Respiratory Rate 20 16 Blood Pressure 107/57 L 151/60 H Pulse Oximetry 93 L 94 L 95 09/20/17 11:51 Temperature 98.1 F Pulse Rate 75 Respiratory Rate 16 Blood Pressure 132/67 Pulse Oximetry 93 L Intake & Output 09/19/17 09/20/17 09/20/17 18:59 06:59 18:59 Weight 117.934 kg Other: # Voids 2 Narrative: GENERAL: Well-nourished, well-developed morbidly obese male patient in [facility]. SKIN: Warm and dry. No rash. HEENT: Normocephalic. Atraumatic. Pupils equal and round. Mucous membranes pink and moist. NECK: Supple. Trachea midline. Large neck circumference. CARDIOVASCULAR: Regular rate and rhythm. No murmur appreciated. RESPIRATORY: No accessory muscle use. Diminished breath sounds at bases, likely secondary to body habitus. Breath sounds equal bilaterally. GASTROINTESTINAL: Abdomen soft, non-tender, nondistended. Normoactive bowel sounds x4. MUSCULOSKELETAL: No obvious deformities. Extremities without clubbing, cyanosis , or edema. NEUROLOGICAL: Awake and alert. No obvious cranial nerve deficits. Motor grossly within normal limits. Moving all extremities spontaneously. Normal speech. PSYCHIATRIC: Appropriate mood and affect; insight and judgment normal. Results - Labs CBC & Chem 7: 09/20/17 09:40 09/20/17 09:40 Laboratory Results - last 24 hr 09/19/17 09/19/17 09/19/17 18:30 18:30 18:30 WBC 8.1 RBC 4.33 Hgb 12.8 Hct 39.0 MCV 90.1 MCH 29.6 MCHC 32.9 RDW 14.5 Plt Count 239 MPV 7.7 Neut % (Auto) 64.5 Lymph % (Auto) 25.6 Garden % (Auto) 5.1 Eos % (Auto) 4.0 Baso % (Auto) 0.8 Neut # (Auto) 5.2 Lymph # (Auto) 2.1 Garden # (Auto) 0.4 Eos # (Auto) 0.3 Baso # (Auto) 0.1 WBC Differential . Differential Comment Auto diff final PT 10.2 INR 1.0 APTT 26.0 D-Dimer Quant (PE/DVT) 0.34 Puncture Site Patient Temperature O2 Saturation ABG pH ABG pCO2 ABG pO2 ABG HCO3 ABG O2 Content ABG Base Excess ABG Methemoglobin Hemoglobin Carboxyhemoglobin O2 Delivery Device Liter Flow Inspired O2 Critical Value Sodium 141 Potassium 4.2 Chloride 101 Carbon Dioxide 31.5 Anion Gap 9 BUN 9 Creatinine 0.81 Estimated GFR 75 L Random Glucose 93 Calcium 9.7 Magnesium 2.2 Total Bilirubin 0.2 AST 29 ALT 51 Alkaline Phosphatase 100 Total Creatine Kinase 43 Troponin I Less than 0.02 L B-Natriuretic Peptide Total Protein 7.2 Albumin 3.3 L TSH 2.230 Serum Alcohol Less than 3 09/19/17 09/19/17 09/20/17 18:30 20:05 03:41 WBC RBC Hgb Hct MCV MCH MCHC RDW Plt Count MPV Neut % (Auto) Lymph % (Auto) Garden % (Auto) Eos % (Auto) Baso % (Auto) Neut # (Auto) Lymph # (Auto) Garden # (Auto) Eos # (Auto) Baso # (Auto) WBC Differential Differential Comment PT INR APTT D-Dimer Quant (PE/DVT) Puncture Site Left brachial Patient Temperature 98.6 O2 Saturation 94 ABG pH 7.38 ABG pCO2 55 H* ABG pO2 86 ABG HCO3 32 H ABG O2 Content 17.0 ABG Base Excess 6.4 H ABG Methemoglobin 0.8 Hemoglobin 12.8 Carboxyhemoglobin 1.4 O2 Delivery Device Nasal cannula Liter Flow 2.00 Inspired O2 21 Critical Value Yes Sodium Potassium Chloride Carbon Dioxide Anion Gap BUN Creatinine Estimated GFR Random Glucose Calcium Magnesium Total Bilirubin AST ALT Alkaline Phosphatase Total Creatine Kinase 28 Troponin I B-Natriuretic Peptide 21 Total Protein Albumin TSH Serum Alcohol 09/20/17 09/20/17 09/20/17 09:40 09:40 09:40 WBC 7.4 RBC 4.26 Hgb 12.4 Hct 38.6 MCV 90.8 MCH 29.1 MCHC 32.0 RDW 14.6 Plt Count 206 MPV 7.4 Neut % (Auto) 73.4 H Lymph % (Auto) 17.8 Garden % (Auto) 4.8 Eos % (Auto) 3.6 Baso % (Auto) 0.4 Neut # (Auto) 5.4 Lymph # (Auto) 1.3 Garden # (Auto) 0.4 Eos # (Auto) 0.3 Baso # (Auto) 0.0 WBC Differential . Differential Comment Auto diff final PT INR APTT D-Dimer Quant (PE/DVT) Puncture Site Patient Temperature O2 Saturation ABG pH ABG pCO2 ABG pO2 ABG HCO3 ABG O2 Content ABG Base Excess ABG Methemoglobin Hemoglobin Carboxyhemoglobin O2 Delivery Device Liter Flow Inspired O2 Critical Value Sodium 139 Potassium 4.0 Chloride 101 Carbon Dioxide 30.6 Anion Gap 7 BUN 9 Creatinine 0.77 Estimated GFR 80 L Random Glucose 100 Calcium 9.1 Magnesium Total Bilirubin 0.4 AST 29 ALT 52 Alkaline Phosphatase 94 Total Creatine Kinase 25 L Troponin I B-Natriuretic Peptide Total Protein 7.1 Albumin 3.2 L TSH Serum Alcohol - Imaging Impressions Chest X-Ray 09/19/17 15:58 CONCLUSION: Moderate cardiomegaly Minimal parenchymal changes left base. No significant failure. Assessment and Plan - Assessment (1) Hypoxia Code(s): R09.02 - Hypoxemia Status: Acute (2) Depression (emotion) Code(s): F32.9 - Major depressive disorder, single episode, unspecified Status : Acute - Plan 51-year-old female with a PMH of Depression and Sleep Apnea who presents the ER for voluntary psychiatric evaluation due to suicidal ideation. She was found to be hypoxic in the ED. Hypoxia: O2 sat 89% in ED. Associated w/ SOB on exertion, progressively worse 1- 2wks, no fever, chills, cough or chest pain. Suspect obesity hypoventilation syndrome and LUZ. -D-dimer negative. -CXR w/moderate cardiomegaly, no overt failure, images reviewed by me. -Check Echo to eval for cardiomyopathy -Continue O2 as needed -continue CPAP w/ home settings. -DuoNeb prn. -Consult pulmonology, patient sees Dr. Blanton, seen by Dr. Key, recommends PFTs -Consider home O2 walk test in am, may need home oxygen Depression/Suicidal Ideation: patient presented Voluntary, not on [place]. -Consulted Psych, cleared for discharge DVT Prophylaxis: SCD/Teds Discharge Planning: Discharge pending further clinical improvement and clearance from pulmonology.
--- NOTE | 2017-09-20 17:29 | ECHRPT ---
Indication: Cardiomyopathy CONCLUSIONS The left ventricular systolic function is low normal with an estimated ejection fraction in the rang e of 50- 55%. Mild concentric left ventricular hypertrophy. Normal left ventricular size. The left atrial size is mildly dilated. Mitral annular calcification is present. Trace mitral valve regurgitation. There is trace tricuspid valve regurgitation. The estimated pulmonary arterial pressure is 39.2 mmHg. Trivial pulmonary valve regurgitation. BP: / HR: 72 Rhythm: Sinus MEASUREMENTS (Male / Female) Normal Values Technical Quality:Technically difficult study 2D ECHO LV Diastolic Diameter PLAX 5.2 cm 4.2 - 5.9 / 3.9 - 5.3 cm LV Systolic Diameter PLAX 3.5 cm IVS Diastolic Thickness 1.1 cm 0.6 - 1.0 / 0.6 - 0.9 cm LVPW Diastolic Thickness 1.1 cm 0.6 - 1.0 / 0.6 - 0.9 cm LV Relative Wall Thickness 0.4 RV Internal Dim ED PLAX 3.2 cm LVOT Diameter 2.0 cm LA Systolic Diameter LX 3.9 cm 3.0 - 4.0 / 2.7 - 3.8 cm M-MODE Aortic Root Diameter MM 3.0 cm LA Systolic Diameter MM 4.0 cm LA Ao Ratio MM 1.3 AV Cusp Separation MM 2.1 cm DOPPLER AV Peak Velocity 186.0 cm/s AV Peak Gradient 13.8 mmHg LVOT Peak Velocity 137.0 cm/s LVOT Peak Gradient 7.5 mmHg AV Area Cont Eq pk 2.3 cm MV Area PHT 1.5 cm Mitral E Point Velocity 65.6 cm/s Mitral A Point Velocity 77.0 cm/s Mitral E to A Ratio 0.9 LV E' Lateral Velocity 10.8 cm/s Mitral E to LV E' Lateral Ratio 6.1 LV E' Septal Velocity 7.1 cm/s Mitral E to LV E' Septal Ratio 9.2 TR Peak Velocity 270.0 cm/s TR Peak Gradient 29.2 mmHg Right Atrial Pressure 10.0 mmHg Pulmonary Artery Systolic Pressu 39.2 mmHg Right Ventricular Systolic Press 39.2 mmHg FINDINGS LEFT VENTRICLE The left ventricular systolic function is low normal with an estimated ejection fraction in the rang e of 50- 55%. Mild concentric left ventricular hypertrophy. Normal left ventricular size. RIGHT VENTRICLE Normal right ventricular size and systolic function. LEFT ATRIUM The left atrial size is mildly dilated. RIGHT ATRIUM The right atrial size is normal. ATRIAL SEPTUM Normal atrial septal thickness without atrial level shunting by limited color doppler interrogation. AORTA The aortic root and proximal ascending aorta are normal in size on limited imaging. MITRAL VALVE Mitral annular calcification is present. Trace mitral valve regurgitation. AORTIC VALVE Trileaflet aortic valve. No aortic valve stenosis or regurgitation. TRICUSPID VALVE Structurally normal tricuspid valve. There is trace tricuspid valve regurgitation. The estimated pulmonary arterial pressure is 39.2 mmHg. PULMONARY VALVE Trivial pulmonary valve regurgitation. VESSELS The inferior vena cava is normal in size. PERICARDIUM No pericardial effusion. Dillon Seymour MD (Electronically Signed) Final Date:20 September 2017 17:29
[2017-09-20] MEDS: Temazepam 15 MG Capsule PO PRN (20:13)
[2017-09-20] MEDS: Acetaminophen 325 MG Tablet PO PRN (20:13)
[2017-09-21] MEDS: Senna/Docusate Sodium 8.6/50 MG Tablet PO SCH ×2 (10:02→21:22)
[2017-09-21] MEDS: Acetaminophen 325 MG Tablet PO PRN ×2 (14:32→23:08)
--- NOTE | 2017-09-21 15:19 | P.PN ---
Subjective Interval history: Follow-up for dyspnea. The patient reports feeling much better today. States she still has some mild dyspnea with exertion, however much improved. Denies any fever/chills, cough, chest pain, or shortness of breath while at rest. Physical Exam Vital signs: Vital Signs 09/20/17 16:00 09/20/17 19:53 09/20/17 20:00 Temperature 98.4 F 98.2 F Pulse Rate 80 72 77 Respiratory Rate 14 18 Blood Pressure 120/67 123/68 Pulse Oximetry 93 L 95 96 Pulse Oximetry [Exertion on Room Air] Pulse Oximetry [Exertion with Oxygen] Pulse Oximetry [Resting on Room Air] 09/21/17 00:00 09/21/17 00:04 09/21/17 03:37 Temperature 98.0 F 98.2 F Pulse Rate 69 77 74 Respiratory Rate 18 21 Blood Pressure 105/57 L 157/75 H Pulse Oximetry 96 95 Pulse Oximetry [Exertion on Room Air] Pulse Oximetry [Exertion with Oxygen] Pulse Oximetry [Resting on Room Air] 09/21/17 04:00 09/21/17 07:37 09/21/17 07:45 Temperature 97.9 F Pulse Rate 64 88 Respiratory Rate 18 Blood Pressure 133/56 L Pulse Oximetry 95 94 L Pulse Oximetry [Exertion on Room Air] Pulse Oximetry [Exertion with Oxygen] Pulse Oximetry [Resting on Room Air] 09/21/17 12:00 09/21/17 13:50 Temperature 97.8 F Pulse Rate 82 Respiratory Rate 20 Blood Pressure 120/56 L Pulse Oximetry 97 Pulse Oximetry [Exertion on Room Air] 86 L Pulse Oximetry [Exertion with Oxygen] 90 L Pulse Oximetry [Resting on Room Air] 94 L Intake & Output 09/20/17 09/21/17 09/21/17 18:59 06:59 18:59 Intake Total 240 / 240 480 / 480 Balance 240 / 240 480 / 480 Intake: Oral 240 / 240 480 / 480 Other: # Voids 2 Date of Last Bowel Movement 09/20/17 Narrative: GENERAL: Well-nourished, well-developed morbidly obese male patient in [facility]. SKIN: Warm and dry. No rash. HEENT: Normocephalic. Atraumatic. Pupils equal and round. Mucous membranes pink and moist. NECK: Supple. Trachea midline. Large neck circumference. CARDIOVASCULAR: Regular rate and rhythm. No murmur appreciated. RESPIRATORY: No accessory muscle use. Diminished breath sounds at bases, likely secondary to body habitus, otherwise clear to auscultation. Breath sounds equal bilaterally. GASTROINTESTINAL: Abdomen soft, non-tender, nondistended. Normoactive bowel sounds x4. MUSCULOSKELETAL: No obvious deformities. Extremities without clubbing, cyanosis , or edema. NEUROLOGICAL: Awake and alert. No obvious cranial nerve deficits. Motor grossly within normal limits. Moving all extremities spontaneously. Normal speech. PSYCHIATRIC: Appropriate mood and affect; insight and judgment normal. Results - Labs CBC & Chem 7: 09/20/17 09:40 09/20/17 09:40 Assessment and Plan - Assessment (1) Hypoxia Code(s): R09.02 - Hypoxemia Status: Acute (2) Depression (emotion) Code(s): F32.9 - Major depressive disorder, single episode, unspecified Status : Acute - Plan 51-year-old female with a PMH of Depression and Sleep Apnea who presents the ER for voluntary psychiatric evaluation due to suicidal ideation. She was found to be hypoxic in the ED. Hypoxia: O2 sat 89% in ED. Associated w/ SOB on exertion, progressively worse 1- 2wks, no fever, chills, cough or chest pain. Suspect obesity hypoventilation syndrome and LUZ. -D-dimer negative. -CXR w/moderate cardiomegaly, no overt failure, images reviewed by me. -Echocardiogram with EF 50-55% -Continue O2 as needed -continue CPAP w/ home settings. -DuoNeb prn. -Consult pulmonology, patient sees Dr. Blanton, seen by Dr. Key, recommends PFTs -Patient failed home O2 walk test, will need to arrange home oxygen upon discharge, case management consulted -patient already has f/up appt scheduled with Dr. Blanton on 09/23 Depression/Suicidal Ideation: patient presented Voluntary, not on [place]. -Consulted Psych, cleared for discharge DVT Prophylaxis: SCD/Teds Discharge Planning: Discharge when home oxygen is arranged by case management.
--- NOTE | 2017-09-21 18:56 | P.PNPL ---
Subjective Interval history: [id number] with Schizo affective disorder,SOB has nausea no Fever Breathing better Physical Exam Vital signs: Vital Signs 09/20/17 19:53 09/20/17 20:00 09/21/17 00:00 Temperature 98.2 F Pulse Rate 72 77 69 Respiratory Rate 18 Blood Pressure 123/68 Pulse Oximetry 95 96 Pulse Oximetry [Exertion on Room Air] Pulse Oximetry [Exertion with Oxygen] Pulse Oximetry [Resting on Room Air] 09/21/17 00:04 09/21/17 03:37 09/21/17 04:00 Temperature 98.0 F 98.2 F Pulse Rate 77 74 64 Respiratory Rate 18 21 Blood Pressure 105/57 L 157/75 H Pulse Oximetry 96 95 Pulse Oximetry [Exertion on Room Air] Pulse Oximetry [Exertion with Oxygen] Pulse Oximetry [Resting on Room Air] 09/21/17 07:37 09/21/17 07:45 09/21/17 12:00 Temperature 97.9 F 97.8 F Pulse Rate 88 82 Respiratory Rate 18 20 Blood Pressure 133/56 L 120/56 L Pulse Oximetry 95 94 L 97 Pulse Oximetry [Exertion on Room Air] Pulse Oximetry [Exertion with Oxygen] Pulse Oximetry [Resting on Room Air] 09/21/17 13:50 09/21/17 16:30 Temperature 98.9 F Pulse Rate 75 Respiratory Rate 18 Blood Pressure 121/61 Pulse Oximetry 95 Pulse Oximetry [Exertion on Room Air] 86 L Pulse Oximetry [Exertion with Oxygen] 90 L Pulse Oximetry [Resting on Room Air] 94 L Intake & Output 09/20/17 09/21/17 09/21/17 18:59 06:59 18:59 Intake Total 240 / 240 480 / 480 Balance 240 / 240 480 / 480 Intake: Oral 240 / 240 480 / 480 Other: # Voids 2 Date of Last Bowel Movement 09/20/17 GENERAL: WBWN WF, NAD SKIN: Warm and dry. HEAD: Normocephalic. EYES: No scleral icterus. No injection or drainage. NECK: Supple, trachea midline. No JVD or lymphadenopathy. CARDIOVASCULAR: Regular rate and rhythm without murmurs, gallops, or rubs. RESPIRATORY: Breath sounds equal bilaterally. No accessory muscle use. GASTROINTESTINAL: Abdomen soft, non-tender, nondistended. MUSCULOSKELETAL: No cyanosis, or edema. BACK: Nontender without obvious deformity. No CVA tenderness. Assessment and Plan - Plan 1. Mild hypoxia with decompensated respiratory acidosis, hypoventilation syndrome, possible underlying sleep apnea. 2. Suicidal ideation. 3. Schizoaffective disorder. 4. Depression. PLAN: Aerosol nebs Zofran prn Check PFT Will need sleep study as out pt Stable on RA
[2017-09-21] MEDS: Temazepam 15 MG Capsule PO PRN (21:22)
--- NOTE | 2017-09-22 08:38 | P.PN ---
Subjective Interval history: Follow up for dyspnea/hypoxia. The patient reports 3 episodes of nausea/ vomiting overnight. Last episode at 3am. Denies any abdominal pain. Last BM normal 1 day ago. She reports her dyspnea has improved although still requiring oxygen. Denies any cough. Denies fevers/chills. She has no other medical complaints at this time. Physical Exam Vital signs: Vital Signs 09/21/17 12:00 09/21/17 13:50 09/21/17 16:30 Temperature 97.8 F 98.9 F Pulse Rate 82 75 Respiratory Rate 20 18 Blood Pressure 120/56 L 121/61 Pulse Oximetry 97 95 Pulse Oximetry [Exertion on Room Air] 86 L Pulse Oximetry [Exertion with Oxygen] 90 L Pulse Oximetry [Resting on Room Air] 94 L 09/21/17 20:00 09/21/17 23:41 09/22/17 00:00 Temperature 97.9 F 97.8 F Pulse Rate 71 70 Respiratory Rate 20 20 Blood Pressure 133/60 122/60 Pulse Oximetry 94 L 94 L 94 L Pulse Oximetry [Exertion on Room Air] Pulse Oximetry [Exertion with Oxygen] Pulse Oximetry [Resting on Room Air] 09/22/17 04:00 09/22/17 07:26 Temperature 98.4 F 97.9 F Pulse Rate 75 71 Respiratory Rate 20 20 Blood Pressure 133/76 127/78 Pulse Oximetry 95 Pulse Oximetry [Exertion on Room Air] Pulse Oximetry [Exertion with Oxygen] Pulse Oximetry [Resting on Room Air] Intake & Output 09/21/17 09/22/17 09/22/17 18:59 06:59 18:59 Intake Total 800 / 800 1040 / 1040 Balance 800 / 800 1040 / 1040 Weight 109.2 kg Intake: Oral 1040 / 1040 Oral Supplement 800 / 800 Other: # Voids 3 Date of Last Bowel Movement 09/21/17 Narrative: GENERAL: Well-nourished, well-developed morbidly obese male patient in [facility]. SKIN: Warm and dry. No rash. HEENT: Normocephalic. Atraumatic. Pupils equal and round. Mucous membranes pink and moist. NECK: Supple. Trachea midline. Large neck circumference. CARDIOVASCULAR: Regular rate and rhythm. No murmur appreciated. RESPIRATORY: No accessory muscle use. Diminished breath sounds at bases, likely secondary to body habitus, otherwise clear to auscultation. Breath sounds equal bilaterally. GASTROINTESTINAL: Abdomen soft, non-tender, nondistended. Normoactive bowel sounds x4. MUSCULOSKELETAL: No obvious deformities. Extremities without clubbing, cyanosis , or edema. NEUROLOGICAL: Awake and alert. No obvious cranial nerve deficits. Motor grossly within normal limits. Moving all extremities spontaneously. Normal speech. PSYCHIATRIC: Appropriate mood and affect; insight and judgment normal. Results - Labs CBC & Chem 7: 09/20/17 09:40 09/20/17 09:40 Assessment and Plan - Assessment (1) Hypoxia Code(s): R09.02 - Hypoxemia Status: Acute (2) Depression (emotion) Code(s): F32.9 - Major depressive disorder, single episode, unspecified Status : Acute - Plan 51-year-old female with a PMH of Depression and Sleep Apnea who presents the ER for voluntary psychiatric evaluation due to suicidal ideation. She was found to be hypoxic in the ED. Hypoxia: O2 sat 89% in ED. Associated w/ SOB on exertion, progressively worse 1- 2wks, no fever, chills, cough or chest pain. Suspect obesity hypoventilation syndrome and LUZ. -D-dimer negative. -CXR w/moderate cardiomegaly, no overt failure, images reviewed by me. -Echocardiogram with EF 50-55% -Continue O2 as needed -continue CPAP w/ home settings. -DuoNeb prn. -Consult pulmonology, patient sees Dr. Blanton, seen by Dr. Key, recommends PFTs -Patient failed home O2 walk test, will need to arrange home oxygen upon discharge, case management consulted -patient already has f/up appt scheduled with Dr. Blanton on 09/23 Depression/Suicidal Ideation: patient presented Voluntary, not on Serrano Act. -Consulted Psych, cleared for discharge Nausea/Vomiting: unclear etiology -supportive treatment with antiemetics prn -symptoms improving, diet as tolerated DVT Prophylaxis: SCD/Teds Discharge Planning: Discharge when home oxygen is arranged by case management. 1600hrs: Nausea/vomiting resolved. The patient wants to go home. Awaiting home oxygen arrangements. She will return to [facility] upon discharge. Discussed with case management. Discharge patient to [facility] Condition on discharge: Stable Regular diet as tolerated Ad Jannette activity Rx written: home oxygen Follow-up with primary care physician and cafeteria supervisor Dr. Blanton as scheduled
[2017-09-22] MEDS: Senna/Docusate Sodium 8.6/50 MG Tablet PO SCH (10:26)
--- NOTE | 2017-10-03 10:04 | P.DS ---
Date of admission: 09/19/17 21:05 Primary care physician: UNKNOWN Anticipated date of discharge: 09/22/17 Brief History from admission: This is a 51-year-old female with a PMH of Depression and Sleep Apnea who presents the ER for voluntary psychiatric evaluation due to suicidal ideation. While in ER, pt noted to have hypoxia w/ O2 sat 89% on RA, upon questioning, pt notes SOB w/ exertion for 1-2wks. Denies fever, chills, cough or chest pain. No previous h/o similar symptoms. BP 150/71, HR 67, O2 sat 89% on RA, Afebrile. CBC unremarkable. INR 1.0, d-dimer negative. Chemistry essentially unremarkable. Troponin negative. Alcohol negative. ABG pH 7.38, PCO2 55, PO2 86 on 2L NC. CXR with moderate cardiomegaly, no significant failure. On exam, patient with no wheezing, good air movement. DS: Diagnosis - Discharge Diagnosis (1) Hypoxia Status: Acute (2) Depression (emotion) Status: Acute DS: Summary Hospital Course: 51-year-old female with a PMH of Depression and Sleep Apnea who presents the ER for voluntary psychiatric evaluation due to suicidal ideation. She was found to be hypoxic in the ED. Hypoxia: O2 sat 89% in ED. Associated w/ SOB on exertion, progressively worse 1- 2wks, no fever, chills, cough or chest pain. Suspect obesity hypoventilation syndrome and LUZ. D-dimer negative. CXR w/moderate cardiomegaly, no overt failure, images reviewed by me. Echocardiogram with EF 50-55%. Continued O2 as needed. Continued CPAP w/ home settings. DuoNeb prn. Consult pulmonology, patient sees Dr. Blanton, seen by Dr. Key, recommends PFTs. Patient failed home O2 walk test, case management arranged home oxygen prior to discharge. Patient' s O2 sat remained stable on 2L NC. Patient already has f/up appt scheduled with Dr. Blanton on 09/23. Depression/Suicidal Ideation: patient presented Voluntary, not on Serrano Act. Consulted Psych, cleared for discharge. Outpatient f/up. Nausea/Vomiting: unclear etiology, patient with spontaneous nausea and vomiting on day of discharge. Given supportive treatment with antiemetics prn. Symptoms resolved spontaneously and she tolerated oral intake. Patient wants to go home. - Time Spent with Patient Total time spent providing and/or coordinating discharge services: Greater than 30 minutes - Quality: VTE Deep Vein Thrombosis/Pulmonary Embolism Present on Admission: No Results Procedures completed during hospitalization: None. - Impressions ITS Impressions Chest X-Ray 09/19/17 15:58 CONCLUSION: Moderate cardiomegaly Minimal parenchymal changes left base. No significant failure. Discharge Plan - Discharge Disposition Patient Disposition: 04 ACLF/SNF - Discharge Condition Condition: Stable - Discharge Order Discharge Orders: Discharge Order (Routine); Ordered 09/22/17 Ordered By: Rosa Landry - Discharge Details Anticipated Discharge Date: 09/22/17 - Physicians Team Primary Care Provider: UNKNOWN, Attending Provider: Daryn Varma Other Providers: Osvaldo Barakat MD ; Christiano Key MD
== END 2017-09-22 18:37 ==
LOC: NEDA 12:55 → NEPHCDU 12:55 → NEPJ 12:55 → NEPHCDU 22:11
PROVIDERS: ADMIT Internal Medicine; ATTEND Internal Medicine

== ENCOUNTER 2017-12-19 17:29 | Inpatient (IN) ==
[2017-12-19 18:26] LABS: Baso # (Auto) 0.1 th/mm3 (0.0-0.2); Baso % (Auto) 0.7 % (0.0-2.0); Eos # (Auto) 0.3 th/mm3 (0.0-0.4); Eos % (Auto) 3.3 % (0.0-4.0); Hemoglobin 12.5 gm/dL (11.6-15.3); Lymph # (Auto) 1.5 th/mm3 (1.0-4.8); Lymph % (Auto) 18.5 % (9.0-44.0); Mean Corpuscular HGB Conc 33.6 % (32.0-36.0); Mean Corpuscular Hemoglobin 31.2 pg (27.0-34.0); Mean Corpuscular Volume 92.8 fL (80.0-100.0); Mean Platelet Volume 7.4 fL (7.0-11.0); Mono # (Auto) 0.4 th/mm3 (0.0-0.9); Mono % (Auto) 4.5 % (0.0-8.0); Neut # (Auto) 5.8 th/mm3 (1.8-7.7); Platelet Count 270 th/mm3 (150-450); Red Blood Count 3.99 mil/mm3 (4.00-5.30); Red Cell Distribution Width 15.4 % (11.6-17.2)
[2017-12-19 18:53] LABS: Anion Gap 9 meq/L (5-15)
[2017-12-19 18:57] LABS: Alanine Aminotransferase 68 U/L (10-53); Albumin 3.5 g/dL (3.4-5.0); Aspartate Aminotransferase 57 U/L (15-37); Blood Urea Nitrogen 6 mg/dL (7-18); Calcium 9.1 mg/dL (8.5-10.1); Carbon Dioxide 27.1 meq/L (21.0-32.0); Chloride 100 meq/L (98-107); Glomerular Filtration Rate 89 mL/min (>89); Glucose,Random 154 mg/dL (74-106); Sodium 136 meq/L (136-145)
[2017-12-19 19:04] LABS: Alkaline Phosphatase 97 U/L (45-117)
--- NOTE | 2017-12-19 19:34 | P.PNPSY ---
52 year old female with history of schizoaffective disorder originally under a voluntary status. I was asked to see the patient as she has been scratching her arm causing superficial laceration. Patient refusing verbal redirection. I offered po medication but patient has refused. She was observed in corner of her room causing self harm to her bottom lip. Patient appears internally stimulated and unable to be redirected. I have ordered injectable medication for the patient at this time. When staff approached the patient to administer medication she became aggressive, continue to scratch herself and also has scratch a staff person. Restraints are order at this time due to harm to self and harm to others. Least restrictive measures were ineffective.
[2017-12-19] MEDS ORDERED: Aluminum/Magnesium/Simethacone Susp 30 ML UDC PO PRN (20:12)
[2017-12-19] MEDS ORDERED: Melatonin 5 MG Tablet PO PRN (20:12)
[2017-12-19] MEDS ORDERED: Dextrose 50% in Water 50 ML Vial IV.PUSH PRN (20:14)
--- NOTE | 2017-12-19 20:22 | ED ---
HPI General Chief Complaint: Psychiatric Symptoms Stated Complaint: depression Time Seen by Provider: 12/19/17 19:58 Source: patient Mode of arrival: ambulatory Limitations: no limitations History of Present Illness HPI Narrative: 52-year-old white female with a long history of psychiatric problems who lives in an [facility] presents emergency department initially on a voluntary basis. The patient was scratching herself and acting out in the examination room. She was seen by the psychiatric nurse practitioner who ordered violent restraints and medication. She was given Geodon and Ativan. The patient on my examination only stated that her right arm hurt. The patient had scratch avilez to her right arm, right leg, and forehead. She stated that she wanted to see blood. She admits to wanting to hurt herself. She denies any homicidal ideation. No toxic ingestions. She denies any other medical complaints. Related Data Home Medications Medication Instructions Recorded Confirmed calcium carbonate-vitamin D3 2 tab PO DAILY 12/19/17 12/19/17 [Os-Moise 500 + D3] diphenhydramine HCl 50 mg PO HS PRN 12/19/17 12/19/17 docusate sodium 50 mg PO BID 12/19/17 12/19/17 lisinopril 40 mg PO DAILY 12/19/17 12/19/17 metformin 500 mg PO QPM 12/19/17 12/19/17 metoprolol tartrate 25 mg PO BID 12/19/17 12/19/17 naproxen 375 mg PO BID PRN 12/19/17 12/19/17 paliperidone palmitate [Invega 234 mg IM QMONTH 12/19/17 12/19/17 Sustenna] paroxetine HCl 30 mg PO DAILY 12/19/17 12/19/17 pravastatin 20 mg PO DAILY 12/19/17 12/19/17 quetiapine 100 mg PO HS 12/19/17 12/19/17 Allergies Allergy/AdvReac Type Severity Reaction Status Date / Time lamotrigine Allergy Mild Rash Verified 12/19/17 17:36 Review of Systems ROS: all other systems reviewed are negative [facility] Medical History Medical History Bipolar disorder (Acute) Depression (Acute) Diabetes (Acute) High cholesterol (Acute) Hypertension (Acute) Surgical History Surgical History History of removal of ovarian cyst (Acute) Social History Social History Substance History: No History of Abuse Second Hand Smoke Exposure: No Smoking Status: Never smoker How Often Do You Have a Drink Containing Alcohol: Never Recent Travel in [facility] within the Last 8 Weeks: No Recent Out of Country Travel within the Last 8 Weeks: No Immunization History Tetanus Immunization: Unsure Exam Narrative Exam Narrative: GENERAL: Well-nourished, well-developed patient. The patient is in four-point restraints. SKIN: Patient has superficial scratch avilez to the anterior forehead, right forearm, and right lower leg. HEAD: Normocephalic . EYES: No scleral icterus. No injection or drainage. ENT: No nasal drainage noted. Mucous membranes pink. Airway patent. NECK: Supple, trachea midline. Moves head freely without obvious discomfort. CARDIOVASCULAR: Regular rate and rhythm without murmurs, gallops, or rubs. RESPIRATORY: Breath sounds equal bilaterally. No accessory muscle use. GASTROINTESTINAL: Abdomen soft, non-tender, nondistended. EXTREMITIES: No cyanosis or edema. BACK: Nontender without obvious deformity. No CVA tenderness. NEURO: Patient is alert and oriented. no sensorimotor deficits. Nonfocal. Normal speech. PSYCH: No delusions. Judgment is poor insight is poor.. Course Initial Documented Vital Signs Temperature 98.5 F 12/19/17 17:36 Pulse Rate 82 12/19/17 17:36 Respiratory Rate 18 12/19/17 17:36 Blood Pressure 143/65 H 12/19/17 17:36 Pulse Oximetry 94 L 12/19/17 17:36 Last Documented Vital Signs Temperature 97.8 F 12/19/17 20:44 Pulse Rate 78 12/19/17 20:44 Respiratory Rate 16 12/19/17 20:44 Blood Pressure 170/70 H 12/19/17 20:44 Pulse Oximetry 95 12/19/17 20:44 Medical Decision Making MDM Narrative Medical decision making narrative: Violent restraints and medication had been ordered prior to my evaluation. The patient had been seen and evaluated by the psychiatric nurse practitioner. A Serrano act has been written. I have reviewed the patient's laboratory testing. The patient is considered medically clear for admission. I have instructed the staff to remove her physical restraints. Medical Screen Exam Complete: Yes Emergency Medical Condition: Yes Differential Diagnosis Differential Diagnosis: MDM: High Differential diagnoses: Schizophrenia, schizoaffective disorder, bipolar, anxiety, depression, adjustment reaction, mood disorder NOS, ODD, depressive disorder NOS, psychosis NOS, substance induced mood disorder, infection, electrolyte abnormality, malingering. Mental health screening discussed with the patient. Psychiatric screen ordered. Lab Data Result diagrams: 12/19/17 18:14 12/19/17 18:14 Lab Results 12/19/17 12/19/17 12/19/17 Range/Units 18:14 18:14 18:14 WBC 8.0 (4.0-11.0) th/mm3 RBC 3.99 L (4.00-5.30) mil/mm3 Hgb 12.5 (11.6-15.3) gm/dL Hct 37.0 (35.0-46.0) % MCV 92.8 (80.0-100.0) fL MCH 31.2 (27.0-34.0) pg MCHC 33.6 (32.0-36.0) % RDW 15.4 (11.6-17.2) % Plt Count 270 (150-450) th/mm3 MPV 7.4 (7.0-11.0) fL Neut % (Auto) 73.0 H (16.0-70.0) % Lymph % (Auto) 18.5 (9.0-44.0) % [place] % (Auto) 4.5 (0.0-8.0) % Eos % (Auto) 3.3 (0.0-4.0) % Baso % (Auto) 0.7 (0.0-2.0) % Neut # (Auto) 5.8 (1.8-7.7) th/mm3 Lymph # (Auto) 1.5 (1.0-4.8) th/mm3 [place] # (Auto) 0.4 (0.0-0.9) th/mm3 Eos # (Auto) 0.3 (0.0-0.4) th/mm3 Baso # (Auto) 0.1 (0.0-0.2) th/mm3 WBC Differential . Differential Comment Auto diff final Sodium 136 (136-145) meq/L Potassium 4.0 (3.5-5.1) meq/L Chloride 100 (98-107) meq/L Carbon Dioxide 27.1 (21.0-32.0) meq/L Anion Gap 9 (5-15) meq/L BUN 6 L (7-18) mg/dL Creatinine 0.70 (0.50-1.00) mg/dL Estimated GFR 89 (>89) mL/min POC Glucose (68-110) mg/dl Random Glucose 154 H (74-106) mg/dL Calcium 9.1 (8.5-10.1) mg/dL Total Bilirubin 0.4 (0.2-1.0) mg/dL AST 57 H (15-37) U/L ALT 68 H (10-53) U/L Alkaline Phosphatase 97 (45-117) U/L Total Protein 8.0 (6.4-8.2) g/dL Albumin 3.5 (3.4-5.0) g/dL TSH 2.500 (0.358-3.740) uIU/mL Salicylates Less than 1.7 L (2.8-20.0) mg/dL Acetaminophen Less than 2.0 L (10.0-30.0) mcg/mL Serum Alcohol Less than 3 (0-5) mg/dL 12/19/17 Range/Units 21:43 WBC (4.0-11.0) th/mm3 RBC (4.00-5.30) mil/mm3 Hgb (11.6-15.3) gm/dL Hct (35.0-46.0) % MCV (80.0-100.0) fL MCH (27.0-34.0) pg MCHC (32.0-36.0) % RDW (11.6-17.2) % Plt Count (150-450) th/mm3 MPV (7.0-11.0) fL Neut % (Auto) (16.0-70.0) % Lymph % (Auto) (9.0-44.0) % [place] % (Auto) (0.0-8.0) % Eos % (Auto) (0.0-4.0) % Baso % (Auto) (0.0-2.0) % Neut # (Auto) (1.8-7.7) th/mm3 Lymph # (Auto) (1.0-4.8) th/mm3 [place] # (Auto) (0.0-0.9) th/mm3 Eos # (Auto) (0.0-0.4) th/mm3 Baso # (Auto) (0.0-0.2) th/mm3 WBC Differential Differential Comment Sodium (136-145) meq/L Potassium (3.5-5.1) meq/L Chloride (98-107) meq/L Carbon Dioxide (21.0-32.0) meq/L Anion Gap (5-15) meq/L BUN (7-18) mg/dL Creatinine (0.50-1.00) mg/dL Estimated GFR (>89) mL/min POC Glucose 149 H (68-110) mg/dl Random Glucose (74-106) mg/dL Calcium (8.5-10.1) mg/dL Total Bilirubin (0.2-1.0) mg/dL AST (15-37) U/L ALT (10-53) U/L Alkaline Phosphatase (45-117) U/L Total Protein (6.4-8.2) g/dL Albumin (3.4-5.0) g/dL TSH (0.358-3.740) uIU/mL Salicylates (2.8-20.0) mg/dL Acetaminophen (10.0-30.0) mcg/mL Serum Alcohol (0-5) mg/dL Discharge Plan Discharge Disposition Patient Disposition: 30 Still Patient Discharge Condition Condition: Stable Physicians Team ED Provider: Meena Kay ED Midlevel Provider: Harmeet Schroeder Primary Care Provider: UNKNOWN, Attending Provider: Geoffrey Claros Other Providers: Lyndsay Mayfield Status ED Status: Left Department Discharge Information Discharge Date/Time: 12/19/17 21:54
[2017-12-19] MEDS: Metoprolol Tartrate 25 MG Tablet PO SCH (21:25)
[2017-12-19] MEDS: Insulin NovoLOG Aspart Correctional Sugar Inj SQ SCH (21:56)
[2017-12-20] MEDS: Insulin NovoLOG Aspart Correctional Sugar Inj SQ SCH ×4 (08:00→20:43)
[2017-12-20 08:27] LABS: Baso # (Auto) 0.1 th/mm3 (0.0-0.2); Baso % (Auto) 0.8 % (0.0-2.0); Eos # (Auto) 0.3 th/mm3 (0.0-0.4); Eos % (Auto) 4.3 % (0.0-4.0); Hematocrit 37.4 % (35.0-46.0); Hemoglobin 12.6 gm/dL (11.6-15.3); Lymph # (Auto) 1.6 th/mm3 (1.0-4.8); Lymph % (Auto) 21.2 % (9.0-44.0); Mean Corpuscular HGB Conc 33.6 % (32.0-36.0); Mean Corpuscular Hemoglobin 30.8 pg (27.0-34.0); Mean Corpuscular Volume 91.6 fL (80.0-100.0); Mean Platelet Volume 7.4 fL (7.0-11.0); Mono # (Auto) 0.4 th/mm3 (0.0-0.9); Mono % (Auto) 5.8 % (0.0-8.0); Neut % (Auto) 67.9 % (16.0-70.0); Platelet Count 259 th/mm3 (150-450); Red Blood Count 4.08 mil/mm3 (4.00-5.30); Red Cell Distribution Width 15.2 % (11.6-17.2); White Blood Count 7.4 th/mm3 (4.0-11.0)
[2017-12-20 08:56] LABS: Chol/HDL Ratio 5.12 Ratio; HDL Cholesterol 44.1 mg/dL (40.0-60.0)
[2017-12-20] MEDS: Metoprolol Tartrate 25 MG Tablet PO SCH ×2 (09:24→20:44)
[2017-12-20] MEDS: Lisinopril 20 MG Tablet PO SCH (09:24)
[2017-12-20 12:44] LABS: Hemoglobin A1c 7.3 % (4.3-6.0)
--- NOTE | 2017-12-20 15:22 | P.HPPSY ---
Provisional Diagnosis Admission Date: December 19, 2017 21:13 Competence Certification of Person's Competence To Provide Express and Informed Consent I have personally examined Sierra Zavala, a person being served at [facility] on, December 20, 2017 1517. Express and informed consent means consent voluntarily given in writing, by a competent person, after sufficient explanation and disclosure of the subject matter involved to enable the person to make a knowing and willful decision without any element of force, fraud, deceit, duress, or other form of constraint or coercion. This person is 18 years of age or older, is not now known to be incompetent to consent to treatment with a guardian advocate, and does not have a health care surrogate or proxy currently making medical treatment decisions. I have found this person to be one of the following: [] Competent to provide express and informed consent, as defined above, for voluntary admission to this facility and is competent to provide express and informed consent for treatment. He/she has the consistent capacity to make well reasoned, willful, and knowing decisions concerning his or her medical or mental health treatment. The person fully and consistently understands the purpose of the admission for examination/placement and is fully capable of personally exercising all rights assured [place] [X] Incompetent to provide express and informed consent to voluntary admission, and this is incompetent to provide express and informed consent to treatment. The person must be transferred to involuntary status and a petition for a guardian advocate filed with the Circuit Court. [] Refusing to provide express and informed consent to voluntary admission but is competent to provide express and informed consent for treatment. The person must be discharged or transferred to involuntary status. Form shall be completed within 24 hours of a person's arrival at the receiving facility and filed in the clinical record of each person: 1. Admitted on a voluntary basis 2. Permitted to provide express and informed consent to his/her own treatment 3. Allowed to transfer from involuntary to voluntary status 4. Prior to permitting a person to consent to his or her own treatment after having been previously found incompetent to consent to treatment. History of Present Illness Capacity: Lacks capacity Chief Complaint: psychosis History of Present Illness: 52 year old female with history of schizoaffective disorder originally under a voluntary status. Patient is largely nonverbal during the interview and information came from previous notes. Patient came into the ER and stated she had suicidal ideation. She later became agitated and was put in restraints and received an ETO. She was noted to be responding to internal stimuli which is confirmed today by nursing. Patient nods yes and no to certain questions and did say she has 6 kids. Otherwise she looks at me blankly or looks away as if talking to her voices. So far, she has not needed any ETO's or restraints on the unit. Patient nodded no when asked if she had suicidal thoughts. When asked about medication patient says she refuses all medications thinking that he "will hurt all my organs." Past psych: Per nursing patient has had multiple admissions to [facility]. No other history is available at this time. She was on Seroquel before admission. Past medical: Obesity, diabetes, hypertension, hypercholesteremia Past Famhx: She is unsure Past Social: She denies drugs or alcohol use. He says she has 6 grown children and had been - Inpatient Certification I certify that the inpatient services were ordered in accordance with Medicare regulations governing the order. This includes certification that hospital inpatient services are reasonable and necessary and in the case of services not specified as inpatient-only under 42 CFR 419.22(n), that they are appropriately provided as inpatient services in accordance to with the 2-midnight benchmark under 43 CFR 412.3(e) I certify that inpatient psychiatric hospital services are medically necessary. Evaluation and treatment and/or diagnostic testing are expected to improve the patient's condition. The patient needs on a daily basis, active treatment furnished directly by or requiring the supervision of inpatient psychiatric facility personnel. Estimated Total Length of Stay (Days): 7 Plans for Post Hospital Care: Not yet determined Review of Systems All other systems reviewed negative except as stated in HPI PMFSH - History History Provided By: Patient - Medical History Medical History: Medical History (Last Reviewed 12/20/17 @ 15:20 by Luis Antonio Willis DO) Bipolar disorder Depression Diabetes High cholesterol Hypertension - Surgical History Surgical History: Surgical History (Last Reviewed 12/20/17 @ 15:20 by Luis Antonio Willis DO) History of removal of ovarian cyst - Tobacco History Second Hand Smoke Exposure: No Smoking Status: Never smoker - Alcohol History How Often Do You Have a Drink Containing Alcohol: Never - Substance Use History Substance History: No History of Abuse - Travel History Recent Travel in the [place] Within the Last 8 Weeks: No Recent Travel Out of the Country Within the Last 8 Weeks: No - Immunization History Tetanus Immunization: Unsure Hx Influenza Vaccine This Season: No Medications and Allergies Active Medications: Active Medications Al Hydrox/Mg Hydrox/Simethicone (Mag-Al Plus Susp Liq) 30 ml PO Q6H PRN PRN Reason: DYSPEPSIA Al Hydroxide/Mg Hydroxide (Milk Of Magnesia Liq) 30 ml PO Q12H PRN PRN Reason: Mild Constipation Dextrose (D50w Vial) 50 ml IV.PUSH UNSCH PRN PRN Reason: PER HYPOGLYCEMIA PROTOCOL Glucagon (Glucagon Inj) 1 mg OTHER PRN PRN PRN Reason: for Hypoglycemia Protocol Insulin Aspart (Novolog Insulin Correctional Sugar Inj) 0 unit SQ ACHS [facility]; Protocol Last Admin: 12/20/17 12:00 Dose: Not Given Lisinopril (Prinivil) 40 mg PO DAILY [facility] Last Admin: 12/20/17 09:24 Dose: 40 mg Melatonin (Melatonin) 5 mg PO HS PRN PRN Reason: INSOMNIA Metformin HCl (Glucophage) 500 mg PO QPM [facility] Metoprolol Tartrate (Lopressor) 25 mg PO BID [facility] Last Admin: 12/20/17 09:24 Dose: 25 mg Pravastatin Sodium (Pravachol) 20 mg PO DAILY [facility] Last Admin: 12/20/17 09:49 Dose: 20 mg Allergies Allergy/AdvReac Type Severity Reaction Status Date / Time lamotrigine Allergy Mild Rash Verified 12/19/17 17:36 Home Medications Medication Instructions Recorded Confirmed Type calcium carbonate-vitamin D3 2 tab PO DAILY 12/19/17 12/19/17 History [Os-Moise 500 + D3] diphenhydramine HCl 50 mg PO HS PRN 12/19/17 12/19/17 History docusate sodium 50 mg PO BID 12/19/17 12/19/17 History lisinopril 40 mg PO DAILY 12/19/17 12/19/17 History metformin 500 mg PO QPM 12/19/17 12/19/17 History metoprolol tartrate 25 mg PO BID 12/19/17 12/19/17 History naproxen 375 mg PO BID PRN 12/19/17 12/19/17 History paliperidone palmitate [Invega 234 mg IM QMONTH 12/19/17 12/19/17 History Sustenna] paroxetine HCl 30 mg PO DAILY 12/19/17 12/19/17 History pravastatin 20 mg PO DAILY 12/19/17 12/19/17 History quetiapine 100 mg PO HS 12/19/17 12/19/17 History Results - Labs CBC & Chem 7: 12/20/17 07:51 12/19/17 18:14 Labs: Laboratory Results - last 24 hr 12/19/17 12/19/17 12/19/17 18:14 18:14 18:14 WBC 8.0 RBC 3.99 L Hgb 12.5 Hct 37.0 MCV 92.8 MCH 31.2 MCHC 33.6 RDW 15.4 Plt Count 270 MPV 7.4 Neut % (Auto) 73.0 H Lymph % (Auto) 18.5 [place] % (Auto) 4.5 Eos % (Auto) 3.3 Baso % (Auto) 0.7 Neut # (Auto) 5.8 Lymph # (Auto) 1.5 [place] # (Auto) 0.4 Eos # (Auto) 0.3 Baso # (Auto) 0.1 WBC Differential . Differential Comment Auto diff final Sodium 136 Potassium 4.0 Chloride 100 Carbon Dioxide 27.1 Anion Gap 9 BUN 6 L Creatinine 0.70 Estimated GFR 89 POC Glucose Random Glucose 154 H Hemoglobin A1c Calcium 9.1 Total Bilirubin 0.4 AST 57 H ALT 68 H Alkaline Phosphatase 97 Total Protein 8.0 Albumin 3.5 Triglycerides Cholesterol LDL Cholesterol, Calc HDL Cholesterol Cholesterol/HDL Ratio TSH 2.500 Salicylates Less than 1.7 L Acetaminophen Less than 2.0 L Serum Alcohol Less than 3 12/19/17 12/20/17 12/20/17 21:43 06:10 07:51 WBC 7.4 RBC 4.08 Hgb 12.6 Hct 37.4 MCV 91.6 MCH 30.8 MCHC 33.6 RDW 15.2 Plt Count 259 MPV 7.4 Neut % (Auto) 67.9 Lymph % (Auto) 21.2 [place] % (Auto) 5.8 Eos % (Auto) 4.3 H Baso % (Auto) 0.8 Neut # (Auto) 5.0 Lymph # (Auto) 1.6 [place] # (Auto) 0.4 Eos # (Auto) 0.3 Baso # (Auto) 0.1 WBC Differential . Differential Comment Auto diff final Sodium Potassium Chloride Carbon Dioxide Anion Gap BUN Creatinine Estimated GFR POC Glucose 149 H 140 H Random Glucose Hemoglobin A1c Calcium Total Bilirubin AST ALT Alkaline Phosphatase Total Protein Albumin Triglycerides Cholesterol LDL Cholesterol, Calc HDL Cholesterol Cholesterol/HDL Ratio TSH Salicylates Acetaminophen Serum Alcohol 12/20/17 12/20/17 12/20/17 07:51 07:51 11:47 WBC RBC Hgb Hct MCV MCH MCHC RDW Plt Count MPV Neut % (Auto) Lymph % (Auto) [place] % (Auto) Eos % (Auto) Baso % (Auto) Neut # (Auto) Lymph # (Auto) [place] # (Auto) Eos # (Auto) Baso # (Auto) WBC Differential Differential Comment Sodium Potassium Chloride Carbon Dioxide Anion Gap BUN Creatinine Estimated GFR POC Glucose 134 H Random Glucose Hemoglobin A1c 7.3 H Calcium Total Bilirubin AST ALT Alkaline Phosphatase Total Protein Albumin Triglycerides 234 H Cholesterol 226 H LDL Cholesterol, Calc 135 H HDL Cholesterol 44.1 Cholesterol/HDL Ratio 5.12 TSH Salicylates Acetaminophen Serum Alcohol Exam Vital signs: Vital Signs 12/19/17 17:36 12/19/17 20:12 12/19/17 20:44 Temperature 98.5 F 98.4 F 97.8 F Pulse Rate 82 75 78 Respiratory Rate 18 17 16 Blood Pressure 143/65 H 144/68 H 170/70 H Pulse Oximetry 94 L 95 12/20/17 06:00 Temperature 98.1 F Pulse Rate 81 Respiratory Rate 18 Blood Pressure 142/72 H Pulse Oximetry 97 Intake & Output 12/19/17 12/20/17 12/20/17 18:59 06:59 18:59 Weight 122.47 kg 124.1 kg Other: Weight On Admission 124.1 kg Mental Status Examination Appearance: Disheveled, Other (Obese) Consciousness: Alert Orientation: Person, Place Motor Activity: Normal gait Speech: Other (Selectively mute) Language: Adequate Fund of Knowledge: Inadequate Attention and Concentration: Easily distracted Memory: Unremarkable (Unable to test) Mood: Angry, Sad, Irritable Affect: Sad, Flat Thought Process & Associations: Intact Thought Content: Appropriate Hallucination Type: None Delusion Type: None Suicidal Ideation: No Suicidal Plan: No Suicidal Intention: No Homicidal Ideation: No Homicidal Plan: No Homicidal Intention: No Insight: Poor Judgment: Poor Assessment and Plan - Assessment (1) Schizoaffective disorder Code(s): F25.9 - Schizoaffective disorder, unspecified Status: Acute - Plan Plan: Estimated LOS: [] days We will petition the patient. Nursing will obtain a guardian and subsequently medication will be started. Justification for Continued Inpatient Stay: Patient would decompensate in a less restrictive setting
--- NOTE | 2017-12-20 16:04 | P.CON ---
History of Present Illness Service: Hospitalist Consult date: 12/20/17 Requesting Physician: Geoffrey Claros Reason for Consult: Assist with ongoing medical management Primary Care Provider: UNKNOWN History of Present Illness: This is a 52-year-old female with a past medical history significant for schizoaffective disorder, depression, anxiety, hypertension, sleep apnea and diabetes who was brought in from the [facility] where the patient resides on a voluntary basis. Patient was witnessed having self-injurious behavior scratching herself and biting her lip. Patient became increasingly agitated and had to be placed in restraints and received an ETO. Patient has been admitted to inpatient psychiatric unit and hospitalist services have been consulted to assist with ongoing medical management. Patient seen and examined. Patient is compliant with questioning and childlike in her mannerisms. She denies any acute medical complaints. She denies any fever chills. Denies any chest pain or shortness of breath. She denies any nausea, vomiting or abdominal pain. She states she is urinating without any difficulties and denies any diarrhea or constipation. Discussed with Rebekah VERA , patient refusing to eat lunch. We discussed with patient ordering something special that she would enjoy eating but she continues to decline. Review of Systems All other systems reviewed negative except as stated in HPI PMFSH - History History Provided By: Patient - Medical History Medical History: Medical History (Last Reviewed 12/20/17 @ 15:57 by Pam Alfredo) Bipolar disorder Depression Diabetes High cholesterol Hypertension - Surgical History Surgical History: Surgical History (Last Reviewed 12/20/17 @ 15:57 by Pam Alfredo) History of removal of ovarian cyst - Family History Family History: Family History (Last Updated 12/20/17 @ 15:58 by Pam Alfredo) Mother Hypertension - Social History I have reviewed the patient's Social History: Yes - Tobacco History Second Hand Smoke Exposure: No Smoking Status: Never smoker - Alcohol History How Often Do You Have a Drink Containing Alcohol: Never - Substance Use History Substance History: No History of Abuse - Travel History Recent Travel in the [place] Within the Last 8 Weeks: No Recent Travel Out of the Country Within the Last 8 Weeks: No - Immunization History Tetanus Immunization: Unsure Hx Influenza Vaccine This Season: No Medications and Allergies Active Medications: Active Medications Al Hydrox/Mg Hydrox/Simethicone (Mag-Al Plus Susp Liq) 30 ml PO Q6H PRN PRN Reason: DYSPEPSIA Al Hydroxide/Mg Hydroxide (Milk Of Sim [place]) 30 ml PO Q12H PRN PRN Reason: Mild Constipation Dextrose (D50w Vial) 50 ml IV.PUSH UNSCH PRN PRN Reason: PER HYPOGLYCEMIA PROTOCOL Glucagon (Glucagon Inj) 1 mg OTHER PRN PRN PRN Reason: for Hypoglycemia Protocol Insulin Aspart (Novolog Insulin Correctional Sugar Inj) 0 unit SQ ACHS [facility]; Protocol Last Admin: 12/20/17 12:00 Dose: Not Given Lisinopril (Prinivil) 40 mg PO DAILY [facility] Last Admin: 12/20/17 09:24 Dose: 40 mg Melatonin (Melatonin) 5 mg PO HS PRN PRN Reason: INSOMNIA Metformin HCl (Glucophage) 500 mg PO QPM [facility] Metoprolol Tartrate (Lopressor) 25 mg PO BID [facility] Last Admin: 12/20/17 09:24 Dose: 25 mg Pravastatin Sodium (Pravachol) 20 mg PO DAILY [facility] Last Admin: 12/20/17 09:49 Dose: 20 mg Allergies Allergy/AdvReac Type Severity Reaction Status Date / Time lamotrigine Allergy Mild Rash Verified 12/19/17 17:36 Home Medications Medication Instructions Recorded Confirmed Type calcium carbonate-vitamin D3 2 tab PO DAILY 12/19/17 12/19/17 History [Os-Moise 500 + D3] diphenhydramine HCl 50 mg PO HS PRN 12/19/17 12/19/17 History docusate sodium 50 mg PO BID 12/19/17 12/19/17 History lisinopril 40 mg PO DAILY 12/19/17 12/19/17 History metformin 500 mg PO QPM 12/19/17 12/19/17 History metoprolol tartrate 25 mg PO BID 12/19/17 12/19/17 History naproxen 375 mg PO BID PRN 12/19/17 12/19/17 History paliperidone palmitate [Invega 234 mg IM QMONTH 12/19/17 12/19/17 History Sustenna] paroxetine HCl 30 mg PO DAILY 12/19/17 12/19/17 History pravastatin 20 mg PO DAILY 12/19/17 12/19/17 History quetiapine 100 mg PO HS 12/19/17 12/19/17 History Physical Exam Vital signs: Vital Signs 12/19/17 17:36 12/19/17 20:12 12/19/17 20:44 Temperature 98.5 F 98.4 F 97.8 F Pulse Rate 82 75 78 Respiratory Rate 18 17 16 Blood Pressure 143/65 H 144/68 H 170/70 H Pulse Oximetry 94 L 95 12/20/17 06:00 Temperature 98.1 F Pulse Rate 81 Respiratory Rate 18 Blood Pressure 142/72 H Pulse Oximetry 97 Intake & Output 12/19/17 12/20/17 12/20/17 18:59 06:59 18:59 Weight 122.47 kg 124.1 kg Other: Weight On Admission 124.1 kg Narrative: GENERAL: Well-developed well-nourished overweight female patient in no acute distress. Awake and alert. SKIN: Warm and dry. HEAD: Atraumatic. Normocephalic. EYES: Pupils equal and round. No scleral icterus. No injection or drainage. ENT: No nasal bleeding or discharge. Mucous membranes pink and moist. NECK: Trachea midline. CARDIOVASCULAR: Regular rate and rhythm. RESPIRATORY: No accessory muscle use. Clear to auscultation. Breath sounds equal bilaterally. GASTROINTESTINAL: Abdomen soft, non-tender, nondistended. Hepatic and splenic margins not palpable. MUSCULOSKELETAL: Extremities without clubbing, cyanosis, or edema. No obvious deformities. NEUROLOGICAL: Awake and alert. No obvious cranial nerve deficits. Motor grossly within normal limits. Able to move all extremities spontaneously. Normal speech. PSYCHIATRIC: Flat affect. Mood appears sad. Judgment insight poor. Assessment and Plan - Plan 52-year-old female with a past medical history significant for schizoaffective disorder, depression, anxiety, hypertension, sleep apnea and diabetes who was brought in from the [facility] where the patient resides on a voluntary basis. Patient was witnessed having self-injurious behavior scratching herself and biting her lip. Schizoaffective disorder Anxiety Depression -Management per psychiatric service Hypertension -Continue on Lopressor 25 mg twice daily and lisinopril 40 mg daily -Clonidine as needed with parameters -Continue to monitor BP and adjust treatment accordingly Diabetes HgbA1c 7.3 Blood sugars adequately controlled -Continue on diabetic diet -Continue on metformin 500 mg daily -Accu-Cheks and insulin sliding scale Dyslipidemia -Continue patient on Pravachol 20 mg daily DVT prophylaxis -Patient is ambulatory Thank you very kindly for this consultation. Patient appears stable from hospitalist standpoint. [facility] will sign off. Please reconsult if needed. Discussed Condition With: patient, nursing staff
[2017-12-21] MEDS: Insulin NovoLOG Aspart Correctional Sugar Inj SQ SCH ×5 (07:30→21:43)
[2017-12-21] MEDS: Lisinopril 20 MG Tablet PO SCH ×2 (09:00→10:00)
[2017-12-21] MEDS: Metoprolol Tartrate 25 MG Tablet PO SCH ×3 (09:00→21:50)
--- NOTE | 2017-12-21 13:28 | P.CONPSY ---
Provisional Diagnosis Admission Date: December 19, 2017 21:13 Benedict I.: Schizoaffective disorder bipolar type History of Present Illness Service: Psychiatry Consult date: 12/21/17 Requesting Physician: Luis Antonio Willis Reason for Consult: Second opinion petition supporting S[place] act Primary Care Provider: UNKNOWN History of Present Illness: Patient is a 52-year-old white female admitted by Dr. Luis Antonio Willis. His H&P reviewed and agreed with. Dr. Willis is done first opinion petition supporting S[place] act. Patient seen by me in day room with floor staff, patient acknowledging command auditory hallucinations telling her not to take her medication. Patient sitting there quietly quite blunted with very minimal eye contact whispered responses. At this time if the patient does meet criteria for involuntary psychiatric hospitalization of the Serrano act thus I will cosign second opinion petition supporting [place] act Review of Systems All other systems reviewed negative except as stated in HPI PMFSH - History History Provided By: Patient - Medical History Medical History: Medical History (Last Reviewed 12/20/17 @ 15:57 by Pam Alfredo) Bipolar disorder Depression Diabetes High cholesterol Hypertension - Surgical History Surgical History: Surgical History (Last Reviewed 12/20/17 @ 15:57 by Pam Alfredo) History of removal of ovarian cyst - Family History Family History: Family History (Last Updated 12/20/17 @ 15:58 by Pam Alfredo) Mother Hypertension - Tobacco History Second Hand Smoke Exposure: No Smoking Status: Never smoker - Alcohol History How Often Do You Have a Drink Containing Alcohol: Never - Substance Use History Substance History: No History of Abuse - Travel History Recent Travel in the [place] Within the Last 8 Weeks: No Recent Travel Out of the Country Within the Last 8 Weeks: No - Immunization History Tetanus Immunization: Unsure Hx Influenza Vaccine This Season: No Medications and Allergies Active Medications: Active Medications Al Hydrox/Mg Hydrox/Simethicone (Mag-Al Plus Susp Liq) 30 ml PO Q6H PRN PRN Reason: DYSPEPSIA Al Hydroxide/Mg Hydroxide (Milk Of Magnesia Liq) 30 ml PO Q12H PRN PRN Reason: Mild Constipation Clonidine HCl (Catapres) 0.1 mg PO Q6H PRN PRN Reason: SYS BP GREATER THAN 170 MMHG Dextrose (D50w Vial) 50 ml IV.PUSH UNSCH PRN PRN Reason: PER HYPOGLYCEMIA PROTOCOL Glucagon (Glucagon Inj) 1 mg OTHER PRN PRN PRN Reason: for Hypoglycemia Protocol Insulin Aspart (Novolog Insulin Correctional Sugar Inj) 0 unit SQ ACHS [facility]; Protocol Last Admin: 12/21/17 11:47 Dose: Not Given Lisinopril (Prinivil) 40 mg PO DAILY [facility] Last Admin: 12/21/17 10:00 Dose: 40 mg Melatonin (Melatonin) 5 mg PO HS PRN PRN Reason: INSOMNIA Metformin HCl (Glucophage) 500 mg PO QPM [facility] Last Admin: 12/20/17 19:17 Dose: 500 mg Metoprolol Tartrate (Lopressor) 25 mg PO BID [facility] Last Admin: 12/21/17 09:59 Dose: 25 mg Pravastatin Sodium (Pravachol) 20 mg PO DAILY [facility] Last Admin: 12/21/17 09:59 Dose: 20 mg Allergies Allergy/AdvReac Type Severity Reaction Status Date / Time lamotrigine Allergy Mild Rash Verified 12/19/17 17:36 Home Medications Medication Instructions Recorded Confirmed Type calcium carbonate-vitamin D3 2 tab PO DAILY 12/19/17 12/19/17 History [Os-Moise 500 + D3] diphenhydramine HCl 50 mg PO HS PRN 12/19/17 12/19/17 History docusate sodium 50 mg PO BID 12/19/17 12/19/17 History lisinopril 40 mg PO DAILY 12/19/17 12/19/17 History metformin 500 mg PO QPM 12/19/17 12/19/17 History metoprolol tartrate 25 mg PO BID 12/19/17 12/19/17 History naproxen 375 mg PO BID PRN 12/19/17 12/19/17 History paliperidone palmitate [Invega 234 mg IM QMONTH 12/19/17 12/19/17 History Sustenna] paroxetine HCl 30 mg PO DAILY 12/19/17 12/19/17 History pravastatin 20 mg PO DAILY 12/19/17 12/19/17 History quetiapine 100 mg PO HS 12/19/17 12/19/17 History Exam Vital signs: Vital Signs 12/21/17 05:51 Temperature 98.4 F Pulse Rate 69 Respiratory Rate 22 Blood Pressure 132/61 Pulse Oximetry 96 Narrative: Patient grossly obese white female sitting quietly in the room she is in no acute distress, patient no respiratory distress, no complaints of chest pain or abdominal pain. Patient sitting up and moving all 4 extremities without difficulty Mental Status Examination Appearance: Disheveled, Other (Obese) Consciousness: Alert Orientation: Person, Place Motor Activity: Normal gait Speech: Other (Selectively mute) Language: Adequate Fund of Knowledge: Inadequate Attention and Concentration: Easily distracted Memory: Unremarkable (Unable to test) Mood: Angry, Sad, Irritable Affect: Sad, Flat Thought Process & Associations: Intact Thought Content: Appropriate Hallucination Type: None Delusion Type: None Suicidal Ideation: No Suicidal Plan: No Suicidal Intention: No Homicidal Ideation: No Homicidal Plan: No Homicidal Intention: No Insight: Poor Judgment: Poor Assessment and Plan - Assessment (1) Schizoaffective disorder Code(s): F25.9 - Schizoaffective disorder, unspecified Status: Acute - Plan Plan: At this time patient meets criteria under the Serrano act for involuntary psychiatric hospitalization thus I will cosign second opinion petition supporting S[place]ano act Justification for Continued Inpatient Stay: At this time patient would decompensate a place to a lower level of care Discharge Planning: To be determined (1) Schizoaffective disorder Qualifiers: Schizoaffective disorder type: bipolar Qualified Code(s): F25.0 - Schizoaffective disorder, bipolar type
[2017-12-21] MEDS: Acetaminophen 325 MG Tablet PO PRN (21:50)
[2017-12-22] MEDS: Insulin NovoLOG Aspart Correctional Sugar Inj SQ SCH ×4 (07:45→20:10)
[2017-12-22] MEDS: Metoprolol Tartrate 25 MG Tablet PO SCH ×2 (08:34→19:59)
[2017-12-22] MEDS: Lisinopril 20 MG Tablet PO SCH (08:34)
[2017-12-22] MEDS ORDERED: Melatonin 5 MG Tablet PO PRN (13:35)
--- NOTE | 2017-12-22 13:39 | P.PNPSY ---
Subjective Chief Complaint: psychosis Remarks: Patient seen in her room with nurse Meghna and medical student Karl, patient showing minimal verbal output and very poor eye contact, chart reviewed, with continued need to permission for psychotropics. Patient is showing some scratches on her right forearm that are oozing some blood. She states increased auditory hallucinations telling her to do that. And she also voices suicidality. I have completed the admitting psychiatric protocol orders, and the med reconciliation will attempt to get permission from family to start patient on medications. Review of Systems All other systems reviewed negative except as stated in HPI Mental Status Examination Appearance: Disheveled, Other (Obese) Consciousness: Alert Orientation: Person, Place Motor Activity: Normal gait Speech: Other (Selectively mute) Language: Adequate Fund of Knowledge: Inadequate Attention and Concentration: Easily distracted Memory: Unremarkable (Unable to test) Mood: Angry, Sad, Irritable Affect: Other (Decreased range and intensity) Thought Process & Associations: Loose associations Thought Content: Appropriate Hallucination Type: Auditory Delusion Type: Paranoid (Loud and command) Suicidal Ideation: Yes (Secondary to auditory hallucinations) Suicidal Plan: No Suicidal Intention: No Homicidal Ideation: No Homicidal Plan: No Homicidal Intention: No Insight: Poor Judgment: Poor Assessment and Plan - Assessment (1) Schizoaffective disorder Code(s): F25.9 - Schizoaffective disorder, unspecified Status: Acute - Plan Plan: Patient remained psychotic and delusional with vague suicidal ideation somewhat dependent upon auditory hallucinations Justification for Continued Inpatient Stay: At this time patient would decompensate a place to a lower level of care Discharge Planning: To be determined Request Healthcare Surrogate/Guardian Advocate?: Yes (1) Schizoaffective disorder Qualifiers: Schizoaffective disorder type: bipolar Qualified Code(s): F25.0 - Schizoaffective disorder, bipolar type
[2017-12-22] MEDS ORDERED: Paliperidone Inj 234 MG/1.5 ML Syringe IM SCH (17:00)
[2017-12-22] MEDS: Docusate Sodium Liq 100 MG/10 ML UDC PO SCH (20:07)
[2017-12-23] MEDS: Insulin NovoLOG Aspart Correctional Sugar Inj SQ SCH ×4 (07:45→20:39)
[2017-12-23] MEDS: Docusate Sodium Liq 100 MG/10 ML UDC PO SCH ×2 (08:51→20:32)
[2017-12-23] MEDS: Metoprolol Tartrate 25 MG Tablet PO SCH ×2 (08:52→20:33)
[2017-12-23] MEDS: Calcium/Vitamin D 250/125 MG Tablet PO SCH (08:53)
[2017-12-23] MEDS: Lisinopril 20 MG Tablet PO SCH (08:53)
[2017-12-23] MEDS ORDERED: Paliperidone Inj 234 MG/1.5 ML Syringe IM SCH (13:00)
--- NOTE | 2017-12-23 14:35 | P.PNPSY ---
Subjective Chief Complaint: psychosis Remarks: Patient seen in day room with nurse Wilma and medical student Karl, patient compliant medications. Patient today continues markedly distracted her verbal output with me is minimal she appears to be selectively mute with me. She is making no eye contact with me. Though she will not only ask about the auditory hallucinations. She is verify those hallucinations with the staff also. We are attempting to reach Robb quiroga to find the last dose of the in [place] sustain a. Until then we will offer her in [place] 6 mg daily Review of Systems All other systems reviewed negative except as stated in HPI Mental Status Examination Appearance: Disheveled, Other (Obese) Consciousness: Alert Orientation: Person, Place Motor Activity: Normal gait Speech: Other (Selectively mute) Language: Adequate Fund of Knowledge: Inadequate Attention and Concentration: Easily distracted Memory: Unremarkable (Unable to test) Mood: Angry, Sad, Irritable Affect: Other (Decreased range and intensity) Thought Process & Associations: Loose associations Thought Content: Appropriate Hallucination Type: Auditory Delusion Type: Paranoid (Loud and command) Suicidal Ideation: Yes (Secondary to auditory hallucinations) Suicidal Plan: No Suicidal Intention: No Homicidal Ideation: No Homicidal Plan: No Homicidal Intention: No Insight: Poor Judgment: Poor Assessment and Plan - Assessment (1) Schizoaffective disorder Code(s): F25.9 - Schizoaffective disorder, unspecified Status: Acute - Plan Plan: Patient is quite psychotic delusional and paranoid with significant command auditory hallucinations. She medication adjustment above Justification for Continued Inpatient Stay: At this time patient would decompensate a place to a lower level of care Discharge Planning: To be determined Request Healthcare Surrogate/Guardian Advocate?: Yes (1) Schizoaffective disorder Qualifiers: Schizoaffective disorder type: bipolar Qualified Code(s): F25.0 - Schizoaffective disorder, bipolar type
[2017-12-23] MEDS: QUEtiapine 100 MG Tablet PO SCH (20:33)
[2017-12-23] MEDS: Acetaminophen 325 MG Tablet PO PRN (23:18)
[2017-12-24] MEDS: Docusate Sodium Liq 100 MG/10 ML UDC PO SCH ×3 (08:50→20:43)
[2017-12-24] MEDS: Metoprolol Tartrate 25 MG Tablet PO SCH ×2 (08:56→20:30)
[2017-12-24] MEDS: Lisinopril 20 MG Tablet PO SCH (08:56)
[2017-12-24] MEDS: Calcium/Vitamin D 250/125 MG Tablet PO SCH (08:56)
[2017-12-24] MEDS: Insulin NovoLOG Aspart Correctional Sugar Inj SQ SCH ×4 (12:19→20:38)
--- NOTE | 2017-12-24 14:38 | P.PNPSY ---
Subjective Chief Complaint: psychosis Remarks: Patient is seen today in her room with floor staff, patient is sitting on the side of her bed she is fairly clean and neat today he is more reactive to make her responses are somewhat more spontaneous and verbal though she is making no significant eye contact. She acknowledges auditory hallucinations most recently this morning she is somewhat vague about suicidality. She does wish to return to her correction when she is better. She has some insight into the need to remain here and have us work with her medications. Patient is scheduled for [place] [facility] tomorrow. I feel patient at this time has the capacity to sign for her admission thus I will lift Refresh Body act allow patient to sign voluntary will continue her treatment Review of Systems All other systems reviewed negative except as stated in HPI Mental Status Examination Appearance: Appropriate, Disheveled, Other (Obese) Consciousness: Alert Orientation: Person, Place Motor Activity: Normal gait Speech: Hesitant, Slow Language: Adequate Fund of Knowledge: Inadequate Attention and Concentration: Easily distracted Memory: Unremarkable (Unable to test) Mood: Sad, Other Affect: Other (RestrictedDecreased range and intensity) Thought Process & Associations: Loose associations Thought Content: Appropriate Hallucination Type: Auditory Delusion Type: Paranoid (Loud and command) Suicidal Ideation: Yes (Secondary to auditory hallucinations) Suicidal Plan: No Suicidal Intention: No Homicidal Ideation: No Homicidal Plan: No Homicidal Intention: No Insight: Poor Judgment: Poor Assessment and Plan - Assessment (1) Schizoaffective disorder Code(s): F25.9 - Schizoaffective disorder, unspecified Status: Acute - Plan Plan: Patient calm isolative with poor verbal output. Acknowledges continued auditory hallucinations. Vague intermittent suicidality. At this time though I feel patient has capacity to sign voluntary will lift [place] act allow her to sign voluntary Justification for Continued Inpatient Stay: At this time patient would decompensate a place to a lower level of care Discharge Planning: Probable return home to her correction Request Healthcare Surrogate/Guardian Advocate?: Yes (1) Schizoaffective disorder Qualifiers: Schizoaffective disorder type: bipolar Qualified Code(s): F25.0 - Schizoaffective disorder, bipolar type
[2017-12-24] MEDS: QUEtiapine 100 MG Tablet PO SCH (20:30)
[2017-12-25 06:20] VITALS: RESP 17
[2017-12-25] MEDS: Calcium/Vitamin D 250/125 MG Tablet PO SCH (08:39)
[2017-12-25] MEDS: Lisinopril 20 MG Tablet PO SCH (08:39)
[2017-12-25] MEDS: Metoprolol Tartrate 25 MG Tablet PO SCH ×3 (08:40→21:49)
[2017-12-25] MEDS: Insulin NovoLOG Aspart Correctional Sugar Inj SQ SCH ×4 (10:50→21:00)
[2017-12-25] MEDS: Docusate Sodium Liq 100 MG/10 ML UDC PO SCH ×2 (10:50→21:48)
--- NOTE | 2017-12-25 14:27 | P.PNPSY ---
Subjective Chief Complaint: psychosis Remarks: Patient seen and [place] with medical student Karl and nurse Faviola, chart reviewed, patient compliant medication. Patient up walking around with improved mood improved range and intensity of affect though she is still making very poor eye contact. She denies suicidality at this time. She denies voices at this time. Though occasionally she appears to be responding to internal stimuli. At this time it appears patient has improved she is compliant with her medication we will consider discharge tomorrow back to her nursing home Review of Systems All other systems reviewed negative except as stated in HPI Mental Status Examination Appearance: Appropriate, Other (Obese) Consciousness: Alert Orientation: Person, Place Motor Activity: Normal gait Speech: Hesitant, Slow Language: Adequate Fund of Knowledge: Inadequate Attention and Concentration: Easily distracted Memory: Unremarkable (Unable to test) Mood: Sad (Better) Affect: Other (Decreased range and intensity) Thought Process & Associations: Loose associations Thought Content: Appropriate Hallucination Type: Auditory (Denies voices at this time) Delusion Type: Paranoid (Improved voices are diminishing) Suicidal Ideation: Yes (Secondary to auditory hallucinations) Suicidal Plan: No Suicidal Intention: No Homicidal Ideation: No Homicidal Plan: No Homicidal Intention: No Insight: Poor Judgment: Poor Assessment and Plan - Assessment (1) Schizoaffective disorder Code(s): F25.9 - Schizoaffective disorder, unspecified Status: Acute - Plan Plan: Patient improving psychosis improving voices decreasing. Compliant medication. For now continue treatment. Consider discharge tomorrow if patient continues to improve Justification for Continued Inpatient Stay: At this time patient would decompensate a place to a lower level of care Discharge Planning: To be determined probable return to her nursing home perhaps tomorrow Request Healthcare Surrogate/Guardian Advocate?: Yes (1) Schizoaffective disorder Qualifiers: Schizoaffective disorder type: bipolar Qualified Code(s): F25.0 - Schizoaffective disorder, bipolar type
[2017-12-25 17:02] VITALS: O2SAT 99
[2017-12-25] MEDS: QUEtiapine 100 MG Tablet PO SCH (21:12)
[2017-12-26 05:58] VITALS: BP 119/62; PULSE 79; TEMP 97.2
[2017-12-26] MEDS: Insulin NovoLOG Aspart Correctional Sugar Inj SQ SCH (09:22)
[2017-12-26] MEDS: Calcium/Vitamin D 250/125 MG Tablet PO SCH (09:23)
[2017-12-26] MEDS: Metoprolol Tartrate 25 MG Tablet PO SCH (09:24)
[2017-12-26] MEDS: Lisinopril 20 MG Tablet PO SCH (09:24)
[2017-12-26] MEDS: Docusate Sodium Liq 100 MG/10 ML UDC PO SCH (09:26)
--- NOTE | 2017-12-26 11:28 | P.DSPSY ---
Psychiatry Discharge Summary Inpatient Psychiatric care?: Yes Advance Directives: No Mental Health Advance Directive: No Health Care Proxy: No - Admission Admission Date: December 19, 2017 21:13 - Admission Diagnosis (1) Schizoaffective disorder Code(s): F25.9 - Schizoaffective disorder, unspecified Brief History: 52 year old female with history of schizoaffective disorder originally under a voluntary status. Patient is largely nonverbal during the interview and information came from previous notes. Patient came into the ER and stated she had suicidal ideation. She later became agitated and was put in restraints and received an ETO. She was noted to be responding to internal stimuli which is confirmed today by nursing. Patient nods yes and no to certain questions and did say she has 6 kids. Otherwise she looks at me blankly or looks away as if talking to her voices. So far, she has not needed any ETO's or restraints on the unit. Patient nodded no when asked if she had suicidal thoughts. When asked about medication patient says she refuses all medications thinking that he "will hurt all my organs." Past psych: Per nursing patient has had multiple admissions to [facility]. No other history is available at this time. She was on Seroquel before admission. Past medical: Obesity, diabetes, hypertension, hypercholesteremia Past Famhx: She is unsure Past Social: She denies drugs or alcohol use. He says she has 6 grown children and had been Tobacco Use In Past 30 Days: No How Often Do You Have a Drink Containing Alcohol: Never Hospital Course: Patient's hospital course was uneventful, she showed compliance with medication from admission, she was no behavioral problems, she initially did voice suicidal ideation and auditory hallucinations. Though slowly faded through the hospitalization. The past few days she showed increased affect though continuing with poor eye contact. She now denies suicidality homicidality voice or visions. At this way for which she is reached maximum benefit of this hospitalization patient to return to her halfway in guarded manner with Rx times a month to follow-up Robb quiroga fact staying - Discharge Discharge Date: 12/26/17 - Discharge Diagnosis (1) Schizoaffective disorder Diagnosis: Principal Code(s): F25.9 - Schizoaffective disorder, unspecified Status: Acute Discharge Disposition: Residential Half-Way - Discharge Instructions Discharge Diet: Regular Diet Activities You Can Perform: Regular- No Restrictions - Discharge Time > 30 minutes Mental Status Examination Appearance: Appropriate, Other (Obese) Consciousness: Alert Orientation: Person, Place Motor Activity: Normal gait Speech: Hesitant, Slow Language: Adequate Fund of Knowledge: Inadequate Attention and Concentration: Easily distracted Memory: Unremarkable (Unable to test) Mood: Sad (Better) Affect: Other (Decreased range and intensity) Thought Process & Associations: Loose associations Thought Content: Appropriate Hallucination Type: Auditory (Denies voices at this time) Delusion Type: Paranoid (Improved voices are diminishing) Suicidal Ideation: Yes (Secondary to auditory hallucinations) Suicidal Plan: No Suicidal Intention: No Homicidal Ideation: No Homicidal Plan: No Homicidal Intention: No Insight: Poor Judgment: Poor Discharge/Advance Care Plan - Results Vital Signs: Last Vital Signs Temp 97.2 F L 12/26/17 05:56 Pulse 79 12/26/17 05:56 Resp 17 12/26/17 05:56 BP 119/62 12/26/17 05:56 Pulse Ox 99 12/25/17 17:00 Lab Results: Abnormal Lab Results 12/25/17 12/25/17 12/25/17 11:30 16:30 20:18 POC Glucose 140 H 135 H 113 H 12/26/17 06:24 POC Glucose 140 H Laboratory Results Hemoglobin A1c 7.3 % (4.3-6.0) H 12/20/17 07:51 Triglycerides 234 mg/dL (42-150) H 12/20/17 07:51 Cholesterol 226 mg/dL (120-200) H 12/20/17 07:51 LDL Cholesterol, Calc 135 mg/dL (0-99) H 12/20/17 07:51 HDL Cholesterol 44.1 mg/dL (40.0-60.0) 12/20/17 07:51 TSH 2.500 uIU/mL (0.358-3.740) 12/19/17 18:14 Summary of Procedures: None done Pending Results: None - Medications Number of antipsychotic medications at discharge: 1 - Discharge Care Plan Goals to Promote Your Health: * To prevent worsening of your condition and complications * To maintain your health at the optimal level Directions to Meet Your Goals: Take your medications as prescribed Follow your dietary instruction Follow activity as directed Keep your appointments as scheduled Take your immunizations and boosters as scheduled If your symptoms worsen call your PCP, if no PCP go to Urgent Care Center or Emergency Room For 30/09 questions related to your inpatient stay or results of tests pending at discharge, please contact Dr. Osvaldo Barakat MD at Smoking is Dangerous to Your Health. Avoid second hand smoking (1) Schizoaffective disorder Qualifiers: Schizoaffective disorder type: bipolar Qualified Code(s): F25.0 - Schizoaffective disorder, bipolar type (1) Schizoaffective disorder Qualifiers: Schizoaffective disorder type: bipolar Qualified Code(s): F25.0 - Schizoaffective disorder, bipolar type
== END 2017-12-26 13:45 ==
LOC: NEPJ 17:29 → NEDA 21:13 → H270 21:40
PROVIDERS: ADMIT Psychiatry & Neurology Psychiatry; ATTEND Psychiatry & Neurology Psychiatry